=== PATIENT | male | born 1965 | race Caucasian/White ===

== ENCOUNTER 2018-05-31 20:47 | Inpatient (IN) ==
[2018-05-31] MEDS ORDERED: Propofol Inj 500 MG/50 ML Vial ONE (20:53)
[2018-05-31] MEDS ORDERED: Propofol 1000 mg/100 ml Inj 1,000 MG/100 ML BOTTLE IV.CONT PRN (21:00)
[2018-05-31] MEDS ORDERED: Succinylcholine Inj 200 MG/10 ML Vial IV.PUSH ONE (21:00)
[2018-05-31] MEDS ORDERED: Etomidate Inj 20 MG/10 ML Ampul IV.PUSH ONE (21:00)
--- NOTE | 2018-05-31 21:34 | XR ---
EXAM DATE: 05/31/2018 9:30 PM EDT AGE/SEX: 52 years / Male INDICATIONS: Shortness of breath. CLINICAL DATA: This is the patient's initial encounter. Patient reports that signs and symptoms have been present for 1 day and indicates a pain score of Nonresponsive. MEDICAL/SURGICAL HISTORY: Non-responsive. Non-responsive. COMPARISON: No prior exams available for comparison. FINDINGS: Mild bibasilar atelectasis. Tiny pleural effusion on the left. No pneumothorax seen. Endotracheal tube tip is at the level of the thoracic inlet, nearly 10 cm above the jacques. Nasogastr ic tube courses into the stomach. CONCLUSION: 1. Trace bibasilar atelectasis. 2. Probable small left pleural effusion. 3. Endotracheal tube tip is at the thoracic inlet. 4. Nasogastric tube tip in the stomach. Electronically signed by: Abdirahman Pelayo MD 05/31/2018 9:32 PM EDT
[2018-05-31 21:40] LABS: Baso % (Auto) 0.5 % (0.0-2.0); Eos % (Auto) 0.3 % (0.0-4.0); Hemoglobin 15.8 gm/dL (13.0-17.0); Lymph # (Auto) 0.7 th/mm3 (1.0-4.8); Lymph % (Auto) 11.3 % (9.0-44.0); Mean Corpuscular HGB Conc 34.2 % (32.0-36.0); Mean Corpuscular Volume 99.4 fL (80.0-100.0); Mean Platelet Volume 7.4 fL (7.0-11.0); Mono # (Auto) 0.3 th/mm3 (0.0-0.9); Mono % (Auto) 5.5 % (0.0-8.0); Neut % (Auto) 82.4 % (16.0-70.0); Platelet Count 175 th/mm3 (150-450); Red Blood Count 4.63 mil/mm3 (4.50-5.90); Red Cell Distribution Width 12.6 % (11.6-17.2); White Blood Count 6.1 th/mm3 (4.0-11.0)
[2018-05-31] MEDS ORDERED: Sod Chloride 0.9% Inj 1,000 ML IV.SIG ONE (21:45)
[2018-05-31 21:50] LABS: Albumin 3.9 g/dL (3.4-5.0); Anion Gap 12 meq/L (5-15); Aspartate Aminotransferase 40 U/L (15-37); Blood Urea Nitrogen 6 mg/dL (7-18); Calcium 8.3 mg/dL (8.5-10.1); Carbon Dioxide 20.7 meq/L (21.0-32.0); Chloride 105 meq/L (98-107); Glomerular Filtration Rate 88 mL/min (>89); Glucose,Random 82 mg/dL (74-106); Potassium 3.9 meq/L (3.5-5.1); Sodium 138 meq/L (136-145)
[2018-05-31 21:53] LABS: Alanine Aminotransferase 45 U/L (12-78); Alkaline Phosphatase 90 U/L (45-117); Total Protein 7.4 g/dL (6.4-8.2)
[2018-05-31 21:58] LABS: ABG Base Excess -7.1 mmol/L (-2-2); ABG PCO2 44 mmHg (38-42); ABG PO2 268 mmHg (61-120)
[2018-05-31 22:01] LABS: Prothrombin Time 10.6 sec (9.8-11.6)
[2018-05-31 22:05] LABS: Thyroid Stimulating Hormone 2.61 uIU/mL (0.358-3.740)
[2018-05-31 22:06] LABS: Bilirubin,Urine Negative (Negative); Clarity,Urine Clear (Clear); Color,Urine Straw (Yellw/Straw); Glucose,Urine (UA) Negative (Negative); Hyaline Casts,Urine 4 /lpf (0-3); Leukocyte Esterase,Urine Negative (Negative); Mucus,Urine Few /lpf (Occasional); Nitrite,Urine Negative (Negative); Specific Gravity,Urine 1.005 (1.002-1.035)
[2018-05-31 22:08] LABS: Amphetamine Screen,Urine Neg (Neg); Barbiturate Screen,Urine Neg (Neg); Cannabinoid Screen,Urine Neg (Neg); Cocaine Screen,Urine Neg (Neg)
[2018-05-31 22:10] LABS: Opiate Screen,Urine Neg (Neg)
--- NOTE | 2018-05-31 22:22 | ED ---
HPI General Chief complaint: Altered Mental Status Stated complaint: evac/medical Time Seen by Provider: 05/31/18 21:00 Source: EMS Mode of arrival: EMS Limitations: altered mental status History of Present Illness HPI narrative: 52yM presenting with unconsciousness. EMS was reportedly called by the patient's 2 friends, who said that the patient took too much Tramadol [place] called EMS when he didn't wake up after approximately 2 hours. EMS found him sitting in a beach chair in high tide, no apparent trauma, but GCS of 3. His GCS apparent improved to 6 during transport, but was again 3 by the time he arrived. I was unable to elicit any further details of HPI, ROS, PMH, PSH, social history, or family history. Related Data Home Medications Medication Instructions Recorded Confirmed Unable to Obtain Home Meds 05/31/18 05/31/18 Allergies Allergy/AdvReac Type Severity Reaction Status Date / Time No Allergy Information Allergy Unverified 05/31/18 21:00 Available Review of Systems ROS Unobtainable ROS Unobtainable: unobtainable due to endotracheal tube PMFSH History History Provided By: Patient Medical History Medical History Medical history unknown (Acute) Surgical History Surgical History Surgical history unknown (Acute) Family History Family History Other Family history unobtainable Social History Social History Substance History: Unable to Obtain Smoking Status: Unknown if ever smoked How Often Do You Have a Drink Containing Alcohol: Unable to Obtain Recent Travel in [facility] within the Last 8 Weeks: No Recent Out of Country Travel within the Last 8 Weeks: No Immunization History Tetanus Immunization: Unable to Assess Hx Influenza Vaccine This Season: Unable to Assess Exam Const Other: Unresponsive [facility] Head: normocephalic and atraumatic Eyes Other: Pupils 4 mm and non-reactive Conjunctival injection bilaterally Neck Other: Trachea midline Chest Chest: normal inspection of the chest Resp Effort & Inspection: normal respiratory effort Auscultation: no rhonchi and no wheezes Cardio Rate: tachycardic Rhythm: regular rhythm GI Inspection: non-distended Palpation: soft and nontender Skin General: no rashes or lesions noted Neuro Other: GCS 3, no response to sternal rub Procedures Intubation Time Out Performed: Yes Sedative: etomidate Mg Given: 20 Paralytic: succinylcholine Mg Given: 100 Laryngoscope: John ET Tube Size: 8 ET Tube Uncuffed: Yes Tube Secured Depth (cm): 25 Tube Secured Location: teeth Tube Placement Confirmation: visualized tube passing through cords, equal breath sounds bilaterally, no breath sounds over epigastrium and confirmation by capnometry Patient Tolerated Procedure: well and no complications Intubation Complications: none Course Initial Documented Vital Signs Pulse Rate 118 H 05/31/18 20:52 Respiratory Rate 24 05/31/18 20:52 Blood Pressure 184/125 H 05/31/18 20:52 Pulse Oximetry 100 05/31/18 20:52 Last Documented Vital Signs Temperature 95.0 F L 05/31/18 21:00 Pulse Rate 89 06/01/18 00:10 Respiratory Rate 15 06/01/18 00:10 Blood Pressure 130/85 06/01/18 00:00 Pulse Oximetry 98 06/01/18 00:10 Critical Care Time Critical Care Time: Yes Total Critical Care Time: 35 Attestation: Total critical care time 35 minutes. This includes examining and stabilizing the patient, gathering a history from a source other than the patient (i.e., EMS), formulating a differential diagnosis, ordering and interpreting laboratory tests and EKG, ordering and interpreting radiology tests , discussing the patient's care with other providers ([facility]), and re-evaluation at frequent intervals. Amount of time is separate from teaching, counseling the patient and/or family, and exclusive of procedures. Medical Decision Making MDM Narrative Medical decision making narrative: Assessment: 52yM presenting with unresponsiveness Plan: Intubation EKG and monitor Labs, including tox screen, EtOH CXR CTH This patient cannot go home as he has acute hypoxic respiratory failure and altered mental status requiring mechanical intubation. He will need ICU level of care. Case discussed with Dr. Wolfe. Differential Diagnosis Differential Diagnosis: Differential diagnosis includes, but is not limited to: ICH, intoxication/ overdose, dehydration Lab Data Lab results reviewed: Yes I reviewed the patient's lab results. Result diagrams: 05/31/18 21:00 05/31/18 21:00 Lab Results 05/31/18 05/31/18 05/31/18 Range/Units 21:00 21:00 21:00 WBC 6.1 (4.0-11.0) th/mm3 RBC 4.63 (4.50-5.90) mil/mm3 Hgb 15.8 (13.0-17.0) gm/dL Hct 46.0 (39.0-51.0) % MCV 99.4 (80.0-100.0) fL MCH 34.0 (27.0-34.0) pg MCHC 34.2 (32.0-36.0) % RDW 12.6 (11.6-17.2) % Plt Count 175 (150-450) th/mm3 MPV 7.4 (7.0-11.0) fL Neut % (Auto) 82.4 H (16.0-70.0) % Lymph % (Auto) 11.3 (9.0-44.0) % [place] % (Auto) 5.5 (0.0-8.0) % Eos % (Auto) 0.3 (0.0-4.0) % Baso % (Auto) 0.5 (0.0-2.0) % Neut # (Auto) 5.0 (1.8-7.7) th/mm3 Lymph # (Auto) 0.7 L (1.0-4.8) th/mm3 [place] # (Auto) 0.3 (0.0-0.9) th/mm3 Eos # (Auto) 0.0 (0.0-0.4) th/mm3 Baso # (Auto) 0.0 (0.0-0.2) th/mm3 WBC Differential . Differential Comment Auto diff final PT 10.6 (9.8-11.6) sec INR 1.0 Ratio Puncture Site Patient Temperature O2 Saturation (90-100) % ABG pH (7.380-7.420) ABG pCO2 (38-42) mmHg ABG pO2 (61-120) mmHg ABG HCO3 (22-26) mmol/L ABG O2 Content (12.0-20.0) Vol % ABG Base Excess (-2-2) mmol/L ABG Methemoglobin (0-2) % Alex Test Hemoglobin (12.0-16.0) G/DL Carboxyhemoglobin (0-4) % O2 Delivery Device Vent Setting Inspired O2 % Critical Value Sodium (136-145) meq/L Potassium (3.5-5.1) meq/L Chloride (98-107) meq/L Carbon Dioxide (21.0-32.0) meq/L Anion Gap (5-15) meq/L BUN (7-18) mg/dL Creatinine (0.60-1.30) mg/dL Estimated GFR (>89) mL/min Random Glucose (74-106) mg/dL Lactic Acid (0.4-2.0) mmol/L Calcium (8.5-10.1) mg/dL Total Bilirubin (0.2-1.0) mg/dL Direct Bilirubin (0.0-0.2) mg/dL Indirect Bilirubin (0.0-0.8) mg/dL AST (15-37) U/L ALT (12-78) U/L Alkaline Phosphatase (45-117) U/L Ammonia (11-32) mcmol/L Troponin I (0.02-0.05) ng/mL Total Protein (6.4-8.2) g/dL Albumin (3.4-5.0) g/dL TSH 2.610 (0.358-3.740) uIU/mL Urine Color (Yellw/Straw) Urine Clarity (Clear) Urine pH (5.0-8.5) Ur Specific [place] (1.002-1.035) Urine Protein (Neg-Trace) mg/dL Urine Glucose (UA) (Negative) mg/dL Urine Ketones (Negative) mg/dL Urine Occult Blood (Negative) Urine Nitrate (Negative) Urine Bilirubin (Negative) Urine Urobilinogen (Less than 2) mg/dL Ur Leukocyte Esterase (Negative) Hyaline Casts (0-3) /lpf Urine Mucus (Occasional) /lpf Micro UA Comment Urine Culture Comments Salicylates (2.8-20.0) mg/dL Urine Opiates Screen (Neg) Acetaminophen (10.0-30.0) mcg/mL Ur Barbiturates Screen (Neg) Ur Amphetamines Screen (Neg) U Benzodiazepines Scrn (Neg) Urine Cocaine Screen (Neg) U Cannabinoids Screen (Neg) Serum Alcohol 129 H (0-5) mg/dL 05/31/18 05/31/18 05/31/18 Range/Units 21:00 21:00 21:00 WBC (4.0-11.0) th/mm3 RBC (4.50-5.90) mil/mm3 Hgb (13.0-17.0) gm/dL Hct (39.0-51.0) % MCV (80.0-100.0) fL MCH (27.0-34.0) pg MCHC (32.0-36.0) % RDW (11.6-17.2) % Plt Count (150-450) th/mm3 MPV (7.0-11.0) fL Neut % (Auto) (16.0-70.0) % Lymph % (Auto) (9.0-44.0) % [place] % (Auto) (0.0-8.0) % Eos % (Auto) (0.0-4.0) % Baso % (Auto) (0.0-2.0) % Neut # (Auto) (1.8-7.7) th/mm3 Lymph # (Auto) (1.0-4.8) th/mm3 [place] # (Auto) (0.0-0.9) th/mm3 Eos # (Auto) (0.0-0.4) th/mm3 Baso # (Auto) (0.0-0.2) th/mm3 WBC Differential Differential Comment PT (9.8-11.6) sec INR Ratio Puncture Site Patient Temperature O2 Saturation (90-100) % ABG pH (7.380-7.420) ABG pCO2 (38-42) mmHg ABG pO2 (61-120) mmHg ABG HCO3 (22-26) mmol/L ABG O2 Content (12.0-20.0) Vol % ABG Base Excess (-2-2) mmol/L ABG Methemoglobin (0-2) % Alex Test Hemoglobin (12.0-16.0) G/DL Carboxyhemoglobin (0-4) % O2 Delivery Device Vent Setting Inspired O2 % Critical Value Sodium 138 (136-145) meq/L Potassium 3.9 (3.5-5.1) meq/L Chloride 105 (98-107) meq/L Carbon Dioxide 20.7 L (21.0-32.0) meq/L Anion Gap 12 (5-15) meq/L BUN 6 L (7-18) mg/dL Creatinine 0.91 (0.60-1.30) mg/dL Estimated GFR 88 L (>89) mL/min Random Glucose 82 (74-106) mg/dL Lactic Acid 3.5 H (0.4-2.0) mmol/L Calcium 8.3 L (8.5-10.1) mg/dL Total Bilirubin 0.5 (0.2-1.0) mg/dL Direct Bilirubin (0.0-0.2) mg/dL Indirect Bilirubin (0.0-0.8) mg/dL AST 40 H (15-37) U/L ALT 45 (12-78) U/L Alkaline Phosphatase 90 (45-117) U/L Ammonia 12 (11-32) mcmol/L Troponin I Less than 0.02 L (0.02-0.05) ng/mL Total Protein 7.4 (6.4-8.2) g/dL Albumin 3.9 (3.4-5.0) g/dL TSH (0.358-3.740) uIU/mL Urine Color (Yellw/Straw) Urine Clarity (Clear) Urine pH (5.0-8.5) Ur Specific [place] (1.002-1.035) Urine Protein (Neg-Trace) mg/dL Urine Glucose (UA) (Negative) mg/dL Urine Ketones (Negative) mg/dL Urine Occult Blood (Negative) Urine Nitrate (Negative) Urine Bilirubin (Negative) Urine Urobilinogen (Less than 2) mg/dL Ur Leukocyte Esterase (Negative) Hyaline Casts (0-3) /lpf Urine Mucus (Occasional) /lpf Micro UA Comment Urine Culture Comments Salicylates (2.8-20.0) mg/dL Urine Opiates Screen (Neg) Acetaminophen (10.0-30.0) mcg/mL Ur Barbiturates Screen (Neg) Ur Amphetamines Screen (Neg) U Benzodiazepines Scrn (Neg) Urine Cocaine Screen (Neg) U Cannabinoids Screen (Neg) Serum Alcohol (0-5) mg/dL 05/31/18 05/31/18 05/31/18 Range/Units 21:09 21:10 21:10 WBC (4.0-11.0) th/mm3 RBC (4.50-5.90) mil/mm3 Hgb (13.0-17.0) gm/dL Hct (39.0-51.0) % MCV (80.0-100.0) fL MCH (27.0-34.0) pg MCHC (32.0-36.0) % RDW (11.6-17.2) % Plt Count (150-450) th/mm3 MPV (7.0-11.0) fL Neut % (Auto) (16.0-70.0) % Lymph % (Auto) (9.0-44.0) % [place] % (Auto) (0.0-8.0) % Eos % (Auto) (0.0-4.0) % Baso % (Auto) (0.0-2.0) % Neut # (Auto) (1.8-7.7) th/mm3 Lymph # (Auto) (1.0-4.8) th/mm3 [place] # (Auto) (0.0-0.9) th/mm3 Eos # (Auto) (0.0-0.4) th/mm3 Baso # (Auto) (0.0-0.2) th/mm3 WBC Differential Differential Comment PT (9.8-11.6) sec INR Ratio Puncture Site Right radial Patient Temperature 98.6 O2 Saturation 93 (90-100) % ABG pH 7.25 L* (7.380-7.420) ABG pCO2 44 H (38-42) mmHg ABG pO2 268 H (61-120) mmHg ABG HCO3 19 L (22-26) mmol/L ABG O2 Content 20.6 H (12.0-20.0) Vol % ABG Base Excess -7.1 L (-2-2) mmol/L ABG Methemoglobin 0.7 (0-2) % Alex Test Y Hemoglobin 15.3 (12.0-16.0) G/DL Carboxyhemoglobin 5.5 H* (0-4) % O2 Delivery Device Ventilator Vent Setting [id number] Inspired O2 60 % Critical Value Yes Sodium (136-145) meq/L Potassium (3.5-5.1) meq/L Chloride (98-107) meq/L Carbon Dioxide (21.0-32.0) meq/L Anion Gap (5-15) meq/L BUN (7-18) mg/dL Creatinine (0.60-1.30) mg/dL Estimated GFR (>89) mL/min Random Glucose (74-106) mg/dL Lactic Acid (0.4-2.0) mmol/L Calcium (8.5-10.1) mg/dL Total Bilirubin (0.2-1.0) mg/dL Direct Bilirubin (0.0-0.2) mg/dL Indirect Bilirubin (0.0-0.8) mg/dL AST (15-37) U/L ALT (12-78) U/L Alkaline Phosphatase (45-117) U/L Ammonia (11-32) mcmol/L Troponin I (0.02-0.05) ng/mL Total Protein (6.4-8.2) g/dL Albumin (3.4-5.0) g/dL TSH (0.358-3.740) uIU/mL Urine Color Straw (Yellw/Straw) Urine Clarity Clear (Clear) Urine pH 5.0 (5.0-8.5) Ur Specific [place] 1.005 (1.002-1.035) Urine Protein Negative (Neg-Trace) mg/dL Urine Glucose (UA) Negative (Negative) mg/dL Urine Ketones Trace (Negative) mg/dL Urine Occult Blood Negative (Negative) Urine Nitrate Negative (Negative) Urine Bilirubin Negative (Negative) Urine Urobilinogen Less than 2 (Less than 2) mg/dL Ur Leukocyte Esterase Negative (Negative) Hyaline Casts 4 (0-3) /lpf Urine Mucus Few H (Occasional) /lpf Micro UA Comment Cath-culture not ind Urine Culture Comments Cath-cult not ind Salicylates (2.8-20.0) mg/dL Urine Opiates Screen Neg (Neg) Acetaminophen (10.0-30.0) mcg/mL Ur Barbiturates Screen Neg (Neg) Ur Amphetamines Screen Neg (Neg) U Benzodiazepines Scrn Neg (Neg) Urine Cocaine Screen Neg (Neg) U Cannabinoids Screen Neg (Neg) Serum Alcohol (0-5) mg/dL 05/31/18 05/31/18 05/31/18 Range/Units 22:39 23:15 23:15 WBC (4.0-11.0) th/mm3 RBC (4.50-5.90) mil/mm3 Hgb (13.0-17.0) gm/dL Hct (39.0-51.0) % MCV (80.0-100.0) fL MCH (27.0-34.0) pg MCHC (32.0-36.0) % RDW (11.6-17.2) % Plt Count (150-450) th/mm3 MPV (7.0-11.0) fL Neut % (Auto) (16.0-70.0) % Lymph % (Auto) (9.0-44.0) % [place] % (Auto) (0.0-8.0) % Eos % (Auto) (0.0-4.0) % Baso % (Auto) (0.0-2.0) % Neut # (Auto) (1.8-7.7) th/mm3 Lymph # (Auto) (1.0-4.8) th/mm3 [place] # (Auto) (0.0-0.9) th/mm3 Eos # (Auto) (0.0-0.4) th/mm3 Baso # (Auto) (0.0-0.2) th/mm3 WBC Differential Differential Comment PT (9.8-11.6) sec INR Ratio Puncture Site Right radial Patient Temperature 98.6 O2 Saturation 94 (90-100) % ABG pH 7.31 L (7.380-7.420) ABG pCO2 41 (38-42) mmHg ABG pO2 211 H (61-120) mmHg ABG HCO3 20 L (22-26) mmol/L ABG O2 Content 21.0 H (12.0-20.0) Vol % ABG Base Excess -5.3 L (-2-2) mmol/L ABG Methemoglobin 0.8 (0-2) % Alex Test Present Hemoglobin 15.5 (12.0-16.0) G/DL Carboxyhemoglobin 4.1 H (0-4) % O2 Delivery Device Ventilator Vent Setting [id number]/[id number] Inspired O2 60 % Critical Value No Sodium (136-145) meq/L Potassium (3.5-5.1) meq/L Chloride (98-107) meq/L Carbon Dioxide (21.0-32.0) meq/L Anion Gap (5-15) meq/L BUN (7-18) mg/dL Creatinine (0.60-1.30) mg/dL Estimated GFR (>89) mL/min Random Glucose (74-106) mg/dL Lactic Acid (0.4-2.0) mmol/L Calcium (8.5-10.1) mg/dL Total Bilirubin 1.0 (0.2-1.0) mg/dL Direct Bilirubin 0.1 (0.0-0.2) mg/dL Indirect Bilirubin 0.9 H (0.0-0.8) mg/dL AST 71 H (15-37) U/L ALT 46 (12-78) U/L Alkaline Phosphatase 78 (45-117) U/L Ammonia 64 H (11-32) mcmol/L Troponin I Less than 0.02 L (0.02-0.05) ng/mL Total Protein 6.9 (6.4-8.2) g/dL Albumin 3.4 (3.4-5.0) g/dL TSH (0.358-3.740) uIU/mL Urine Color (Yellw/Straw) Urine Clarity (Clear) Urine pH (5.0-8.5) Ur Specific [place] (1.002-1.035) Urine Protein (Neg-Trace) mg/dL Urine Glucose (UA) (Negative) mg/dL Urine Ketones (Negative) mg/dL Urine Occult Blood (Negative) Urine Nitrate (Negative) Urine Bilirubin (Negative) Urine Urobilinogen (Less than 2) mg/dL Ur Leukocyte Esterase (Negative) Hyaline Casts (0-3) /lpf Urine Mucus (Occasional) /lpf Micro UA Comment Urine Culture Comments Salicylates (2.8-20.0) mg/dL Urine Opiates Screen (Neg) Acetaminophen (10.0-30.0) mcg/mL Ur Barbiturates Screen (Neg) Ur Amphetamines Screen (Neg) U Benzodiazepines Scrn (Neg) Urine Cocaine Screen (Neg) U Cannabinoids Screen (Neg) Serum Alcohol (0-5) mg/dL 05/31/18 05/31/18 06/01/18 Range/Units 23:15 23:15 00:00 WBC (4.0-11.0) th/mm3 RBC (4.50-5.90) mil/mm3 Hgb (13.0-17.0) gm/dL Hct (39.0-51.0) % MCV (80.0-100.0) fL MCH (27.0-34.0) pg MCHC (32.0-36.0) % RDW (11.6-17.2) % Plt Count (150-450) th/mm3 MPV (7.0-11.0) fL Neut % (Auto) (16.0-70.0) % Lymph % (Auto) (9.0-44.0) % [place] % (Auto) (0.0-8.0) % Eos % (Auto) (0.0-4.0) % Baso % (Auto) (0.0-2.0) % Neut # (Auto) (1.8-7.7) th/mm3 Lymph # (Auto) (1.0-4.8) th/mm3 [place] # (Auto) (0.0-0.9) th/mm3 Eos # (Auto) (0.0-0.4) th/mm3 Baso # (Auto) (0.0-0.2) th/mm3 WBC Differential Differential Comment PT (9.8-11.6) sec INR Ratio Puncture Site Patient Temperature O2 Saturation (90-100) % ABG pH (7.380-7.420) ABG pCO2 (38-42) mmHg ABG pO2 (61-120) mmHg ABG HCO3 (22-26) mmol/L ABG O2 Content (12.0-20.0) Vol % ABG Base Excess (-2-2) mmol/L ABG Methemoglobin (0-2) % Alex Test Hemoglobin (12.0-16.0) G/DL Carboxyhemoglobin (0-4) % O2 Delivery Device Vent Setting Inspired O2 % Critical Value Sodium (136-145) meq/L Potassium (3.5-5.1) meq/L Chloride (98-107) meq/L Carbon Dioxide (21.0-32.0) meq/L Anion Gap (5-15) meq/L BUN (7-18) mg/dL Creatinine (0.60-1.30) mg/dL Estimated GFR (>89) mL/min Random Glucose (74-106) mg/dL Lactic Acid 3.3 H (0.4-2.0) mmol/L Calcium (8.5-10.1) mg/dL Total Bilirubin (0.2-1.0) mg/dL Direct Bilirubin (0.0-0.2) mg/dL Indirect Bilirubin (0.0-0.8) mg/dL AST (15-37) U/L ALT (12-78) U/L Alkaline Phosphatase (45-117) U/L Ammonia (11-32) mcmol/L Troponin I (0.02-0.05) ng/mL Total Protein (6.4-8.2) g/dL Albumin (3.4-5.0) g/dL TSH (0.358-3.740) uIU/mL Urine Color (Yellw/Straw) Urine Clarity (Clear) Urine pH (5.0-8.5) Ur Specific [place] (1.002-1.035) Urine Protein (Neg-Trace) mg/dL Urine Glucose (UA) (Negative) mg/dL Urine Ketones (Negative) mg/dL Urine Occult Blood (Negative) Urine Nitrate (Negative) Urine Bilirubin (Negative) Urine Urobilinogen (Less than 2) mg/dL Ur Leukocyte Esterase (Negative) Hyaline Casts (0-3) /lpf Urine Mucus (Occasional) /lpf Micro UA Comment Urine Culture Comments Salicylates 3.3 (2.8-20.0) mg/dL Urine Opiates Screen (Neg) Acetaminophen Less than 2.0 L (10.0-30.0) mcg/mL Ur Barbiturates Screen (Neg) Ur Amphetamines Screen (Neg) U Benzodiazepines Scrn (Neg) Urine Cocaine Screen (Neg) U Cannabinoids Screen (Neg) Serum Alcohol (0-5) mg/dL Imaging Data Radiologist's impression: Chest X-Ray 05/31/18 21:00 CONCLUSION: 1. Trace bibasilar atelectasis. 2. Probable small left pleural effusion. 3. Endotracheal tube tip is at the thoracic inlet. 4. Nasogastric tube tip in the stomach. Head CT 06/01/18 00:01 CONCLUSION: No acute intracranial abnormality is identified. ECG Data Attestation: I personally reviewed and interpreted this ECG as follows: Interpretation: Rate: 107 BPM Rhythm: Sinus [place]: Normal Intervals: Normal intervals, no blocks, QTc 396 ms Q waves: aVL T waves: Upright, no inversions ST segments: No significant elevations or depressions Impression: Non-specific EKG. Discharge Plan Discharge Disposition Patient Disposition: 30 Still Patient Discharge Condition Condition: Critical Discharge Details Diagnosis: Overdose, Altered mental status, Acute respiratory failure with hypoxia Physicians Team ED Provider: Renee Nash Primary Care Provider: UNKNOWN, Attending Provider: Rl Wolfe Discharge Interventions Interventions: ED Discharge Assessment Last Done: 06/01/18 00:58 Status ED Status: Left Department Discharge Information Discharge Date/Time: 06/01/18 00:59
[2018-05-31] MEDS ORDERED: Bisacodyl 10 MG Supp RECTAL PRN (23:00)
[2018-05-31] MEDS ORDERED: fentaNYL 10 mcg/mL Premix Drip 2,500 MCG/250 ML BAG IV.SIG PRN (23:00)
[2018-05-31] MEDS ORDERED: Acetaminophen 325 MG Tablet PO PRN (23:00)
[2018-05-31] MEDS ORDERED: Magnesium Sulfate Inj 2 GM in Sodium Chlor 0.9% Inj 96 ML IV.SIG PRN (23:04)
[2018-05-31] MEDS ORDERED: Potassium Chlor 40 mEq Premix 40 MEQ/100 ML PIGGYBACK IV.SIG PRN ×2 (23:04)
[2018-05-31] MEDS ORDERED: Magnesium Oxide 400 MG Tablet PO PRN (23:04)
[2018-05-31] MEDS ORDERED: Potassium Phosphate 500 MG Soluble Tablet PO PRN ×2 (23:04)
[2018-05-31] MEDS ORDERED: Magnesium Sulfate Inj 4 GM in Sodium Chlor 0.9% Inj 92 ML IV.SIG PRN (23:04)
[2018-05-31] MEDS ORDERED: Potassium Phosphate Inj 30 MMOL in Sodium Chlor 0.9% Inj 250 ML IV.SIG PRN (23:04)
[2018-05-31] MEDS ORDERED: Potassium Chlor 20 mEq Premix 20 MEQ/100 ML PIGGYBACK IV.SIG PRN ×2 (23:04)
[2018-05-31] MEDS ORDERED: Sodium Phosphate Inj 30 MMOL in Sodium Chlor 0.9% Inj 250 ML IV.SIG PRN (23:04)
[2018-05-31] MEDS ORDERED: Potassium Chloride 25 MEQ Effervescent Tablet PO PRN (23:04)
[2018-05-31] MEDS ORDERED: Dextrose 50% in Water 50 ML Vial IV.PUSH PRN (23:05)
--- NOTE | 2018-05-31 23:07 | P.HPCC ---
History of Present Illness Service: [facility] Primary Care Physician: UNKNOWN Chief Complaint: Unresponsive unresponsive History of Present Illness: This is a 52-year-old male. Date of admission 05/31/2018 past medical history is unknown. Patient has been recently [facility] for approximately 1 week according to 2 friends per records. Patient was found by his 2 friends sitting in a beachchair with steep and water after allegedly taking tramadol and drinking alcohol. He is generally unresponsive GCS of 3. It slightly improved but went back to baseline at 3 upon admission. Patient is intubated receiving 20 mg etomidate in the 100 mg succinylcholine. Baseline laboratories revealed an EtOH level of 127. EKG revealed sinus tachycardia 107. Normal NH, QRS and QT intervals. Patient lactic acidosis of 3.5. Carboxy hemoglobin of 5.5. Chest x-ray reveals ET tube tenseness of the jacques which is been advanced. Small left pleural effusion. Since the friends are no longer available. Unable to further details of HPI, ROS, PMH, PSH, social history, or family history. Review of Systems unobtainable due to endotracheal tube PMFSH - History History Provided By: Patient - Medical / Surgical Hx Neg / Unobtainable Medical Problems Denied: Unable to Obtain - Medical History Medical History: Medical History (Last Updated 05/31/18 @ 23:24 by Rl Wolfe MD) Medical history unknown - Surgical History Surgical History: Surgical History (Last Updated 05/31/18 @ 23:25 by Rl Wolfe MD) Surgical history unknown (Acute) - Family History Family History: Family History (Last Updated 05/31/18 @ 23:24 by Rl Wolfe MD) Other Family history unobtainable - Tobacco History Smoking Status: Unknown if ever smoked - Alcohol History How Often Do You Have a Drink Containing Alcohol: Unable to Obtain - Substance Use History Substance History: Unable to Obtain - Travel History Recent Travel in the [place] Within the Last 8 Weeks: No Recent Travel Out of the Country Within the Last 8 Weeks: No - Immunization History Tetanus Immunization: Unable to Assess Hx Influenza Vaccine This Season: Unable to Assess Medications and Allergies Active Medications: Active Medications Acetaminophen (Tylenol) 650 mg PO Q6H PRN PRN Reason: PAIN 1-10 AND/OR FEVER >101F Al Hydroxide/Mg Hydroxide (Milk Of Magnesia Liq) 30 ml PO Q12H PRN PRN Reason: Mild Constipation Albuterol (Albuterol Neb (Fidelia)) 2.5 mg NEB Q2HR NEB PRN PRN Reason: SHORTNESS OF BREATH/WHEEZING Albuterol (Duoneb Neb (Prn)) 1 ampul NEB Q4HR NEB FIDELIA Artificial Tears (Genteal Severe Dry Eye Relief 0.3% Opth Gel) 1 drops EACH EYE BID FIDELIA Bisacodyl (Dulcolax Supp) 10 mg RECTAL DAILY PRN PRN Reason: SEVERE CONSITIPATION Chlorhexidine Gluconate (Peridex 0.12% Oral Kit) 15 ml OROPHARYNG BID@0800, 2000 FIDELIA Chlorhexidine Gluconate (Chlorhexidine 2% Cloth) 3 pack TOPICAL DAILY@0400 FIDELIA Stop: 06/06/18 03:59 Chlorhexidine Gluconate (Chlorhexidine 2% Cloth) 3 pack TOPICAL DAILY@0400 PRN PRN Reason: Extra cloth needed Stop: 06/06/18 03:59 Chlorhexidine Gluconate (Peridex 0.12% Oral Kit) 15 ml OROPHARYNG BID@0800, 2000 [facility] Dextrose (D50w Vial) 50 ml IV.PUSH UNSCH PRN PRN Reason: PER HYPOGLYCEMIA PROTOCOL Dextrose (D50w Vial) 50 ml IV.PUSH UNSCH PRN PRN Reason: PER HYPOGLYCEMIA PROTOCOL Famotidine (Pepcid Pf Inj) 20 mg IV.PUSH Q12HR FIDELIA Glucagon (Glucagon Inj) 1 mg OTHER PRN PRN PRN Reason: for Hypoglycemia Protocol Glucagon (Glucagon Inj) 1 mg OTHER PRN PRN PRN Reason: for Hypoglycemia Protocol Propofol (Diprivan 1000 Mg/100 Ml Inj) 1,000 mg in 100 mls @ 2.722 mls/hr IV.CONT TITRATE PRN; Protocol PRN Reason: Per Protocol Last Admin: 05/31/18 21:23 Dose: 55.11 mcg/kg/min, 30 mls/hr Fentanyl (Fentanyl 10 Mcg/Ml Premix Drip) 2,500 mcg in 250 mls @ 5 mls/hr IV.SIG TITRATE PRN; Protocol PRN Reason: Per Protocol Propofol (Diprivan 1000 Mg/100 Ml Inj) 1,000 mg in 100 mls @ 2.722 mls/hr IV.CONT TITRATE PRN; Protocol PRN Reason: Per Protocol Sodium Chloride (Ns Inj) 1,000 mls @ 84 mls/hr IV.CONT .[id number] FIDELIA Magnesium Sulfate Inj 4 gm/ (Sodium Chloride) 100 mls @ 50 mls/hr IV.SIG UNSCH PRN PRN Reason: For Magnesium 0.9 - 1.1 mg/dL Magnesium Sulfate Inj 2 gm/ (Sodium Chloride) 100 mls @ 50 mls/hr IV.SIG UNSCH PRN PRN Reason: For Magnesium 1.2 - 1.6 mg/dL Potassium Chloride (Kcl 20 Meq Premix Inj) 20 meq in 100 mls @ 50 mls/hr IV.SIG Q2H PRN PRN Reason: For Potassium 3.3 - 3.5 mEq/L Potassium Chloride (Kcl 40 Meq Premix Inj) 40 meq in 100 mls @ 25 mls/hr IV.SIG UNSCH PRN PRN Reason: For Potassium 3.3 - 3.5 mEq/L Potassium Chloride (Kcl 20 Meq Premix Inj) 20 meq in 100 mls @ 50 mls/hr IV.SIG Q2H PRN PRN Reason: For Potassium 2.8 - 3.2 mEq/L Potassium Phosphate 30 mmol/ (Sodium Chloride) 260 mls @ 42 mls/hr IV.SIG UNSCH PRN PRN Reason: SEE LABEL COMMENTS Sodium Phosphate 30 mmol/ (Sodium Chloride) 260 mls @ 42 mls/hr IV.SIG UNSCH PRN PRN Reason: For Phosphorus < 2.5 mg/dL Potassium Chloride (Kcl 40 Meq Premix Inj) 40 meq in 100 mls @ 25 mls/hr IV.SIG Q2H PRN PRN Reason: For Potassium 2.8 - 3.2 mEq/L Multivitamins 10 ml/ Thiamine HCl 100 mg/ Folic Acid 1 mg/Sodium Chloride 511.2 mls @ 125 mls/hr IV.SIG Q24H FIDELIA Stop: 06/03/18 03:51 Insulin Aspart (Novolog Insulin Correctional Sugar Inj) 0 unit SQ Q6HR FIDELIA; Protocol Lactulose (Lactulose Liq) 30 ml PO DAILY PRN PRN Reason: SEVERE CONSITIPATION Magnesium Oxide (Mag-Ox) 800 mg PO UNSCH PRN PRN Reason: For Magnesium 1.2 - 1.6 mg/dL Potassium Bicarb/Potassium Chloride (K-Lyte Cl Eff) 50 meq PO UNSCH PRN PRN Reason: For Potassium 3.3 - 3.5 mEq/L Potassium Phosphate (K-Phos Original) 2,000 mg PO Q4H PRN PRN Reason: Phosphorus Less Than 2.5 mg/dL Potassium Phosphate (K-Phos Original) 2,000 mg PO UNSCH PRN PRN Reason: SEE LABEL COMMENTS Senna/Docusate Sodium (Krystina-Colace) 1 tab PO BID FIDELIA Sennosides (Senokot) 17.2 mg PO Q12H PRN PRN Reason: Moderate Constipation Sodium Chloride (Ns Flush) 2 ml IV.FLUSH PRN PRN PRN Reason: FLUSH AFTER USING IV ACCESS Sodium Chloride (Ns Flush) 2 ml IV.FLUSH BID FIDELIA Sodium Chloride (Ns Flush) 2 ml IV.FLUSH PRN PRN PRN Reason: FLUSH AFTER USING IV ACCESS Allergies Allergy/AdvReac Type Severity Reaction Status Date / Time No Allergy Information Allergy Unverified 05/31/18 21:00 Available Home Medications Medication Instructions Recorded Confirmed Type Unable to Obtain Home Meds 05/31/18 05/31/18 History Results - Labs CBC & Chem 7: 05/31/18 21:00 05/31/18 21:00 Labs: Short CBC 05/31/18 Range/Units 21:00 WBC 6.1 (4.0-11.0) th/mm3 Hgb 15.8 (13.0-17.0) gm/dL Hct 46.0 (39.0-51.0) % Plt Count 175 (150-450) th/mm3 BMP 05/31/18 21:00 Sodium 138 Potassium 3.9 Chloride 105 Carbon Dioxide 20.7 L BUN 6 L Creatinine 0.91 Calcium 8.3 L Cardiac Enzymes 05/31/18 Range/Units 21:00 Troponin I Less than 0.02 L (0.02-0.05) ng/mL Liver Function 05/31/18 Range/Units 21:00 Total Bilirubin 0.5 (0.2-1.0) mg/dL AST 40 H (15-37) U/L ALT 45 (12-78) U/L Alkaline Phosphatase 90 (45-117) U/L Albumin 3.9 (3.4-5.0) g/dL Urine 05/31/18 Range/Units 21:10 Urine Color Straw (Yellw/Straw) Urine Clarity Clear (Clear) Urine pH 5.0 (5.0-8.5) Ur Specific [place] 1.005 (1.002-1.035) Urine Protein Negative (Neg-Trace) mg/dL Urine Glucose (UA) Negative (Negative) mg/dL - Imaging Impressions Chest X-Ray 05/31/18 21:00 CONCLUSION: 1. Trace bibasilar atelectasis. 2. Probable small left pleural effusion. 3. Endotracheal tube tip is at the thoracic inlet. 4. Nasogastric tube tip in the stomach. Exam Vital signs: Vital Signs 05/31/18 20:52 05/31/18 20:55 05/31/18 21:00 Temperature 95.0 F L Pulse Rate 118 H 127 H 147 H Respiratory Rate 24 18 22 Blood Pressure 184/125 H 230/147 H 204/125 H Pulse Oximetry 100 100 100 05/31/18 21:03 05/31/18 21:10 05/31/18 21:13 Temperature Pulse Rate 118 H 110 H Respiratory Rate 20 14 Blood Pressure 193/128 H 168/109 H Pulse Oximetry 100 100 100 05/31/18 22:33 Temperature Pulse Rate 104 H Respiratory Rate 16 Blood Pressure 153/99 H Pulse Oximetry 100 Intake & Output 05/31/18 05/31/18 06/01/18 06:59 18:59 06:59 Weight 90.718 kg - Constitutional no acute distress, somnolent - Routine HEENT Exam Head: Present: normocephalic, atraumatic Eye: Present: EOMI, PERRL, normal accommodation ENT: Present: mucous membranes moist, dentition normal - Routine Neck Exam Present: supple. Absent: JVD, carotid bruit - Routine Chest/Breast/Axilla Exam Chest wall: Absent: tenderness Breast: Absent: tenderness Axillae: Absent: lymphadenopathy - Routine Respiratory Exam Present: CTA bilaterally. Absent: accessory muscle use, rhonchi, wheezes, crackles - Routine Cardiovascular Exam Present: S1, S2, tachycardia. Absent: murmur - Routine Abdominal Exam Present: soft, normoactive bowel sounds. Absent: tenderness, distended - Routine Extremities Exam Absent: cyanosis, clubbing, edema - Routine Skin Exam Present: intact, warm - Routine Neurological Exam Present: CN II-XII intact. Absent: sensory deficit, motor deficit Septic Shock Reassessment Septic shock perfusion: reassessment completed Caprini VTE Risk Assessment Caprini VTE Risk Assessment: No/Low Risk (score <= 1) Caprini Risk Assessment Model: Point Value = 1 Point Value = 2 Point Value = 3 Point Value = 5 Age 41-60 Minor surgery BMI > 25 kg/m2 Swollen legs Varicose veins or History of unexplained or recurrent spontaneous Oral contraceptives or hormone replacement Sepsis (< 1 month) Serious lung disease, including pneumonia (< 1 month) Abnormal pulmonary function Acute myocardial infarction Congestive heart failure (< 1 month) History of inflammatory bowel disease Medical patient at bed rest Age 61-74 Arthroscopic surgery Major open surgery (> 45 min) Laparoscopic surgery (> 45 min) Malignancy Confined to bed (> 72 hours) Immobilizing plaster cast Central venous access Age >= 75 History of VTE Family history of VTE Factor V Leiden Prothrombin [id number] Lupus anticoagulant Anticardiolipin antibodies Elevated serum homocysteine Heparin-induced thrombocytopenia Other congenital or acquired thrombophilia Stroke (< 1 month) Elective arthroplasty Hip, pelvis, or leg fracture Acute spinal cord injury (< 1 month) Prophylaxis Regimen: Total Risk Factor Score Risk Level Prophylaxis Regimen 0-1 Low Early ambulation 2 Moderate Order ONE of the following: *Sequential Compression Device (SCD) *Heparin 5000 units SQ BID 3-4 Higher Order ONE of the following medications: *Heparin 5000 units SQ TID *Enoxaparin/Lovenox 40 mg SQ daily (WT < 150 kg, CrCl > 30 mL/min) *Enoxaparin/Lovenox 30 mg SQ daily (WT < 150 kg, CrCl > 10-29 mL/min) *Enoxaparin/Lovenox 30 mg SQ BID (WT < 150 kg, CrCl > 30 mL/min) AND/OR *Sequential Compression Device (SCD) 5 or more Highest Order ONE of the following medications: *Heparin 5000 units SQ TID (Preferred with Epidurals) *Enoxaparin/Lovenox 40 mg SQ daily (WT < 150 kg, CrCl > 30 mL/min) *Enoxaparin/Lovenox 30 mg SQ daily (WT < 150 kg, CrCl > 10-29 mL/min) *Enoxaparin/Lovenox 30 mg SQ BID (WT < 150 kg, CrCl > 30 mL/min) AND *Sequential Compression Device (SCD) Assessment and Plan - Assessment and Plan Plan: Neuro/Psych: Acute encephalopathy likely secondary to tramadol/EtOH EtOH intoxication CT brain currently pending Currently on propofol drip at 40 mg/kg/min/as needed fentanyl drip for sedation/ analgesia while intubated Goal of RA SS -2 Daily sedation vacation Follow-up on EEG Acetaminophen 600 mg by mouth every 6 hours as needed pain Urine toxicology screen, acetaminophen and salicylate levels pending EtOH level elevated at 129 Vitamin bag daily 3 days CV: Sinus tachycardia Lactic acidosis Currently on normal saline at 84 cc an hour Not requiring vasopressors and/or antihypertensives Received 2 L normal saline in ED. Recheck lactic acid in a.m. until cleared Resp: Acute respiratory failure secondary to AMS Elevated carboxyhemoglobin PRVC 16/540/10/25/49 Ventilator bundle Albuterol/ipratropium aerosols every 4 hours with albuterol aerosols every 2 hours as needed for dyspnea CPAP trial/spontaneous breathing trials when clinically indicated Chest x-ray revealed ET tube 10 cm above the jacques. This was advanced. Small left pleural effusion. Cardiomegaly GI: Elevated AST NG/OGT to LIWS Famotidine for GI prophylaxis Docusate sodium/senna 1 tablet twice daily for bowel regimen : Licea catheter has been placed for accurate I's and O's in a critically ill patient Endo: SSI aspart insulin Accu-Cheks every 6 hours to maintain euglycemia/low regimen TSH was 2.6 Renal: Monitor urine output Accurate I's and O's Recheck BMP in a.m. Heme: CBC within normal limits INR 1.0 No indication for transfusion of blood products at this time ID: Monitor for signs and symptomatology of infection FEN: Replace electrolytes as clinically indicated per ICU likely protocol MSK: PT evaluate and treat Access -Utilize peripheral IV. Central line if indicated Prophylaxis -GI -famotidine -DVT -SCD/holding pharmacological prophylaxis pending CT Critical time 35 minutes
[2018-05-31 23:39] LABS: ABG Base Excess -5.3 mmol/L (-2-2); ABG PCO2 41 mmHg (38-42); ABG PO2 211 mmHg (61-120)
[2018-05-31] MEDS: Sod Chloride 0.9% Inj 1,000 ML IV.CONT SCH (23:50)
[2018-05-31 23:55] LABS: Alkaline Phosphatase 78 U/L (45-117); Total Protein 6.9 g/dL (6.4-8.2)
[2018-05-31 23:56] LABS: Alanine Aminotransferase 46 U/L (12-78); Albumin 3.4 g/dL (3.4-5.0); Aspartate Aminotransferase 71 U/L (15-37)
[2018-06-01] MEDS ORDERED: Oral Hygiene Kit OROPHARYNG SCH
--- NOTE | 2018-06-01 01:06 | CT ---
EXAM DATE: 06/01/2018 1:00 AM EDT AGE/SEX: 52 years / Male INDICATIONS: Altered mental status. Found unresponsive. CLINICAL DATA: This is the patient's initial encounter. Patient reports that signs and symptoms have been present for 1 day and indicates a pain score of Nonresponsive. MEDICAL/SURGICAL HISTORY: Non-responsive. Non-responsive. RADIATION DOSE: 66.34 CTDI (mGy) COMPARISON: No prior exams available for comparison. TECHNIQUE: CT of the head without contrast. Using automated exposure control and adjustment of the mA and/or kV according to patient size, radiation dose was kept as low as reasonably achievable to ob tain optimal diagnostic quality images. DICOM format image data is available electronically for revi ew and comparison. FINDINGS: Cerebrum: The ventricles are normal. No midline shift, mass lesion, hemorrhage or acute infarction. No extraaxial fluid collections are seen. Posterior Fossa: The cerebellum and brainstem demonstrate no acute abnormality. The 4th ventricle is midline. The cerebellopontine angle is within normal limits. Extracranial: The visualized sinuses are clear. Skull: The calvaria is intact. No skull fracture. CONCLUSION: No acute intracranial abnormality is identified. Electronically signed by: Abdirahman Stanford MD 06/01/2018 1:05 AM EDT
[2018-06-01] MEDS: Propofol 1000 mg/100 ml Inj 1,000 MG/100 ML BOTTLE IV.CONT PRN ×5 (01:28→22:05)
[2018-06-01] MEDS: Insulin NovoLOG Aspart Correctional Sugar Inj SQ SCH ×4 (02:02→19:49)
[2018-06-01] MEDS: Oral Hygiene Kit OROPHARYNG SCH ×4 (02:04→19:48)
[2018-06-01] MEDS: Multivitamin Inj 10 ML, Thiamine Inj 100 MG, Folic Acid Inj 1 MG in Sodium Chlor 0.9% I... IV.SIG SCH (02:34)
[2018-06-01] MEDS: Chlorhexidine Gluconate 2% 1 Pack (2 Cloths) TOPICAL SCH (03:40)
[2018-06-01] MEDS ORDERED: Chlorhexidine Gluconate 2% 1 Pack (2 Cloths) TOPICAL PRN (04:00)
[2018-06-01] MEDS: Heparin - SQ 10,000 UNITS/ML Vial SQ SCH ×3 (05:26→21:11)
[2018-06-01 05:42] LABS: Activated Partial Thrombo Time 24.7 sec (24.3-30.1); Prothrombin Time 10.5 sec (9.8-11.6)
[2018-06-01 05:45] LABS: Baso % (Auto) 0.4 % (0.0-2.0); Eos # (Auto) 0.1 th/mm3 (0.0-0.4); Eos % (Auto) 0.9 % (0.0-4.0); Hematocrit 44.3 % (39.0-51.0); Hemoglobin 15.6 gm/dL (13.0-17.0); Lymph # (Auto) 1.5 th/mm3 (1.0-4.8); Lymph % (Auto) 20.1 % (9.0-44.0); Mean Corpuscular HGB Conc 35.1 % (32.0-36.0); Mean Corpuscular Hemoglobin 34.4 pg (27.0-34.0); Mean Corpuscular Volume 97.9 fL (80.0-100.0); Mean Platelet Volume 7.5 fL (7.0-11.0); Mono # (Auto) 0.8 th/mm3 (0.0-0.9); Mono % (Auto) 10.6 % (0.0-8.0); Platelet Count 177 th/mm3 (150-450); Red Blood Count 4.53 mil/mm3 (4.50-5.90); Red Cell Distribution Width 12.5 % (11.6-17.2); White Blood Count 7.4 th/mm3 (4.0-11.0)
[2018-06-01 05:53] LABS: Alanine Aminotransferase 41 U/L (12-78); Albumin 3.4 g/dL (3.4-5.0); Anion Gap 10 meq/L (5-15); Aspartate Aminotransferase 36 U/L (15-37); Blood Urea Nitrogen 6 mg/dL (7-18); Calcium 8.1 mg/dL (8.5-10.1); Carbon Dioxide 24.2 meq/L (21.0-32.0); Chloride 110 meq/L (98-107); Glomerular Filtration Rate 88 mL/min (>89); Glucose,Random 65 mg/dL (74-106); Magnesium 2.1 mg/dL (1.5-2.5); Phosphorus 4.1 mg/dL (2.5-4.9); Potassium 4.1 meq/L (3.5-5.1); Sodium 144 meq/L (136-145)
[2018-06-01 05:57] LABS: Alkaline Phosphatase 84 U/L (45-117); Prealbumin 21 mg/dL (20-40); Total Protein 6.5 g/dL (6.4-8.2)
[2018-06-01] MEDS ORDERED: Chlorhexidine 0.12% Oral Kit 15 ML UDC OROPHARYNG SCH (08:00)
--- NOTE | 2018-06-01 08:26 | ECG ---
Date Performed: 05/31/2018 Time Performed: 21:03:57 PTAGE: 52 years EKG: SINUS TACHYCARDIA MODERATE ST DEPRESSION ABNORMAL ECG NO PREVIOUS TRACING DOCTOR: Elkin Burrows Interpretating Date/Time 06/01/2018 08:24:50
--- NOTE | 2018-06-01 14:10 | P.PNCC ---
Subjective Subjective Remarks/Hospital Course: 05/31: This is a 52-year-old male. Date of admission 05/31/2018 past medical history is unknown. Patient has been recently [facility] for approximately 1 week according to 2 friends per records. Patient was found by his 2 friends sitting in a beachchair with steep and water after allegedly taking tramadol and drinking alcohol. He is generally unresponsive GCS of 3. It slightly improved but went back to baseline at 3 upon admission. Patient is intubated receiving 20 mg etomidate in the 100 mg succinylcholine. Baseline laboratories revealed an EtOH level of 127. EKG revealed sinus tachycardia 107. Normal TN, QRS and QT intervals. Patient lactic acidosis of 3.5. Carboxy hemoglobin of 5.5. Chest x-ray reveals ET tube tenseness of the jacques which is been advanced. Small left pleural effusion. Since the friends are no longer available. Unable to further details of HPI, ROS, PMH, PSH, social history, or family history. 06/01: Remains sedated, orally intubated on mechanical ventilation. Gets agitated on turning on propofol. Objective Vital Signs / I&O: Vital Signs 05/31/18 20:52 05/31/18 20:55 05/31/18 21:00 Temperature 95.0 F L Pulse Rate 118 H 127 H 147 H Respiratory Rate 24 18 22 Blood Pressure 184/125 H 230/147 H 204/125 H Pulse Oximetry 100 100 100 05/31/18 21:03 05/31/18 21:10 05/31/18 21:13 Temperature Pulse Rate 118 H 110 H Respiratory Rate 20 14 Blood Pressure 193/128 H 168/109 H Pulse Oximetry 100 100 100 05/31/18 22:33 05/31/18 23:00 06/01/18 00:00 Temperature Pulse Rate 104 H 102 H 90 Respiratory Rate 16 14 14 Blood Pressure 153/99 H 144/97 H 130/85 Pulse Oximetry 100 99 99 06/01/18 00:10 06/01/18 00:58 06/01/18 01:42 Temperature Pulse Rate 89 101 H Respiratory Rate 15 Blood Pressure Pulse Oximetry 98 100 06/01/18 01:44 06/01/18 01:47 06/01/18 01:49 Temperature Pulse Rate 101 H 101 H Respiratory Rate 14 Blood Pressure 161/106 H Pulse Oximetry 99 99 06/01/18 02:00 06/01/18 03:00 06/01/18 04:00 Temperature Pulse Rate 101 H 101 H 94 H Respiratory Rate 14 14 14 Blood Pressure 161/106 H 161/106 H 135/94 H Pulse Oximetry 99 99 99 06/01/18 04:02 06/01/18 05:11 06/01/18 06:00 Temperature Pulse Rate 95 H 85 87 Respiratory Rate 16 14 14 Blood Pressure 142/96 H 155/97 H Pulse Oximetry 100 99 99 06/01/18 06:52 06/01/18 07:34 06/01/18 08:00 Temperature Pulse Rate 87 84 89 Respiratory Rate 14 10 L 16 Blood Pressure 155/97 H 133/90 Pulse Oximetry 99 100 100 06/01/18 09:00 06/01/18 11:27 06/01/18 11:29 Temperature Pulse Rate 88 82 Respiratory Rate 12 13 Blood Pressure Pulse Oximetry 100 06/01/18 12:00 Temperature Pulse Rate 89 Respiratory Rate Blood Pressure 143/91 H Pulse Oximetry Intake & Output 05/31/18 06/01/18 06/01/18 18:59 06:59 18:59 Intake Total 100 / 100 Output Total 3375 / 3375 225 / 225 Balance -3275 / -3275 -225 / -225 Weight 80.5 kg Intake: IV 100 / 100 Diprivan 1000 mg/100 ml Inj 1, 100 / 100 000 mg In 100 ml @ 5 MCG/KG/MIN 2.722 mls/hr IV.CONT TITRATE PRN Rx#:[id number] Output: Urine 375 / 375 Urine Amount (Catheter) 3000 / 3000 225 / 225 Indwelling Urethral Catheter 3000 / 3000 225 / 225 Other: Weight On Admission 90.718 kg Result Diagrams: 06/01/18 05:11 06/01/18 05:11 Imaging: Chest X-Ray 05/31/18 21:00 CONCLUSION: 1. Trace bibasilar atelectasis. 2. Probable small left pleural effusion. 3. Endotracheal tube tip is at the thoracic inlet. 4. Nasogastric tube tip in the stomach. Head CT 06/01/18 00:01 CONCLUSION: No acute intracranial abnormality is identified. Objective Remarks: HEENT/ Neuro: Sedated, orally intubated, Pallor present, no icterus, tongue/ mucosa dry Neck: No JVD Chest/Pulm: on mech vent, good air entry bilaterally, no wheezing or crackles CVS: S1-S2 regular, no murmur GI/abdomen: soft, nontender, bowel sounds sluggish Extremities: warm bilaterally, no edema Assessment and Plan - Assessment and Plan Plan: Neuro/Psych: Acute encephalopathy likely secondary to tramadol/EtOH EtOH intoxication propofol drip. Off fentanyl drip. Goal of RA SS -2 Daily sedation vacation Follow-up on EEG Acetaminophen 600 mg by mouth every 6 hours as needed pain Urine toxicology screen, acetaminophen and salicylate levels pending EtOH level elevated at 129 Vitamin bag daily 3 days CV: Sinus tachycardia Lactic acidosis Currently on normal saline at 84 cc an hour Not requiring vasopressors and/or antihypertensives Received 2 L normal saline in ED. Recheck lactic acid in a.m. until cleared Resp: Acute respiratory failure secondary to AMS Elevated carboxyhemoglobin PRVC 16/540/10/25/50 Ventilator bundle Albuterol/ipratropium aerosols every 4 hours with albuterol aerosols every 2 hours as needed for dyspnea CPAP trial/spontaneous breathing trials when clinically indicated Chest x-ray revealed ET tube 10 cm above the jacques. This was advanced. Small left pleural effusion. Cardiomegaly GI: Elevated AST NG/OGT to LIWS Famotidine for GI prophylaxis Docusate sodium/senna 1 tablet twice daily for bowel regimen : Licea catheter has been placed for accurate I's and O's in a critically ill patient Endo: SSI aspart insulin Accu-Cheks every 6 hours to maintain euglycemia/low regimen TSH was 2.6 Renal: Monitor urine output Accurate I's and O's Heme: CBC within normal limits INR 1.0 No indication for transfusion of blood products at this time ID: Monitor for signs and symptomatology of infection FEN: Replace electrolytes as clinically indicated per ICU likely protocol MSK: PT evaluate and treat Access -Utilize peripheral IV. Central line if indicated Prophylaxis -GI -famotidine -DVT -SCD/holding pharmacological prophylaxis pending CT Critical time 35 minutes
[2018-06-01] MEDS: Chlorhexidine 0.12% Oral Kit 15 ML UDC OROPHARYNG SCH ×2 (15:52→20:13)
[2018-06-01] MEDS: Hypromellose 0.3% Opth Gel 10 GM Bottle EACH EYE SCH ×2 (15:52→20:14)
[2018-06-01] MEDS: Sod Chloride 0.9% Inj 1,000 ML IV.CONT SCH ×2 (15:53→22:06)
[2018-06-01] MEDS: Senna/Docusate Sodium 8.6/50 MG Tablet PO SCH ×2 (15:53→20:12)
[2018-06-01] MEDS: Famotidine PF Inj 20 MG/2 ML Vial IV.PUSH SCH ×2 (15:53→20:12)
--- NOTE | 2018-06-01 18:32 | MG ---
cc: Filiberto Zamarripa MD EEG NUMBER: [id number] INDICATION: Unresponsive on beach by friends. MEDICATIONS: 1. Tramadol. 2. Alcohol. 3. Propofol. FINDINGS: Diffuse beta rhythms are seen. Overall recording is synchronous and symmetric. He never reaches a good alpha rhythm posteriorly. Photic stimulation is performed without significant posterior driving. Hyperventilation is not performed. A few bursts of alpha rhythms are seen towards the end of the recording. He had a right arm jerk which did not correlate with any seizure activity. IMPRESSION: Some medication effect. Otherwise, an unremarkable electroencephalogram. MD GERMAINE Braden/tavo , 05:55 PM , 05:59 PM
[2018-06-02] MEDS: Insulin NovoLOG Aspart Correctional Sugar Inj SQ SCH ×3 (00:51→12:49)
[2018-06-02] MEDS: Oral Hygiene Kit OROPHARYNG SCH ×4 (00:52→16:15)
[2018-06-02] MEDS: Multivitamin Inj 10 ML, Thiamine Inj 100 MG, Folic Acid Inj 1 MG in Sodium Chlor 0.9% I... IV.SIG SCH (01:01)
[2018-06-02] MEDS: Propofol 1000 mg/100 ml Inj 1,000 MG/100 ML BOTTLE IV.CONT PRN ×2 (02:32→06:03)
[2018-06-02] MEDS: Chlorhexidine Gluconate 2% 1 Pack (2 Cloths) TOPICAL SCH (06:03)
[2018-06-02] MEDS: Heparin - SQ 10,000 UNITS/ML Vial SQ SCH ×3 (06:11→21:24)
[2018-06-02] MEDS: Famotidine PF Inj 20 MG/2 ML Vial IV.PUSH SCH ×2 (08:01→21:23)
[2018-06-02] MEDS: Senna/Docusate Sodium 8.6/50 MG Tablet PO SCH ×2 (08:01→20:27)
--- NOTE | 2018-06-02 08:12 | P.PNCC ---
Subjective Subjective Remarks/Hospital Course: 05/31: This is a 52-year-old male. Date of admission 05/31/2018 past medical history is unknown. Patient has been recently [facility] for approximately 1 week according to 2 friends per records. Patient was found by his 2 friends sitting in a beachchair with steep and water after allegedly taking tramadol and drinking alcohol. He is generally unresponsive GCS of 3. It slightly improved but went back to baseline at 3 upon admission. Patient is intubated receiving 20 mg etomidate in the 100 mg succinylcholine. Baseline laboratories revealed an EtOH level of 127. EKG revealed sinus tachycardia 107. Normal SC, QRS and QT intervals. Patient lactic acidosis of 3.5. Carboxy hemoglobin of 5.5. Chest x-ray reveals ET tube tenseness of the jacques which is been advanced. Small left pleural effusion. Since the friends are no longer available. Unable to further details of HPI, ROS, PMH, PSH, social history, or family history. 06/01: Remains sedated, orally intubated on mechanical ventilation. Gets agitated on turning on propofol. 06/02: Remains sedated, orally intubated on mechanical ventilation. Objective Vital Signs / I&O: Vital Signs 06/01/18 09:00 06/01/18 10:00 06/01/18 11:00 Temperature Pulse Rate 88 88 84 Respiratory Rate 12 12 12 Blood Pressure 140/89 146/95 H 157/91 H Pulse Oximetry 100 100 100 06/01/18 11:27 06/01/18 11:29 06/01/18 12:00 Temperature Pulse Rate 82 85 Respiratory Rate 12 13 13 Blood Pressure 143/91 H Pulse Oximetry 100 100 06/01/18 13:00 06/01/18 14:00 06/01/18 15:00 Temperature Pulse Rate 85 85 89 Respiratory Rate 13 16 16 Blood Pressure 141/87 H 123/80 135/89 Pulse Oximetry 100 100 100 06/01/18 15:24 06/01/18 16:00 06/01/18 17:13 Temperature Pulse Rate 86 89 91 H Respiratory Rate 15 15 17 Blood Pressure 145/99 H 139/96 H Pulse Oximetry 100 100 100 06/01/18 18:00 06/01/18 19:00 06/01/18 20:00 Temperature 99.1 F Pulse Rate 93 H 87 89 Respiratory Rate 20 19 20 Blood Pressure 130/99 H 131/86 121/79 Pulse Oximetry 100 100 98 06/01/18 20:03 06/01/18 21:00 06/01/18 22:00 Temperature Pulse Rate 85 101 H 91 H Respiratory Rate 18 17 19 Blood Pressure 152/96 H 150/98 H Pulse Oximetry 100 100 100 06/01/18 23:00 06/01/18 23:49 06/02/18 00:00 Temperature 98.9 F Pulse Rate 86 83 84 Respiratory Rate 22 17 19 Blood Pressure 140/95 H 148/96 H Pulse Oximetry 100 99 100 06/02/18 01:00 06/02/18 02:00 06/02/18 03:00 Temperature Pulse Rate 90 85 77 Respiratory Rate 18 15 15 Blood Pressure 126/79 116/76 107/69 Pulse Oximetry 98 98 100 06/02/18 03:46 06/02/18 04:00 06/02/18 05:00 Temperature 98.7 F Pulse Rate 74 75 82 Respiratory Rate 15 16 17 Blood Pressure 109/73 128/85 Pulse Oximetry 100 100 100 06/02/18 06:00 06/02/18 07:57 Temperature Pulse Rate 86 Respiratory Rate 21 13 Blood Pressure 136/90 Pulse Oximetry 100 98 Intake & Output 06/01/18 06/02/18 06/02/18 18:59 06:59 18:59 Intake Total 1300 / 1300 2362.4 / 2362.4 Output Total 1800 / 1800 1275 / 1275 Balance -500 / -500 1087.4 / 1087.4 Weight 80.5 kg Intake: IV 1300 / 1300 2222.4 / 2222.4 Diprivan 1000 mg/100 ml Inj 1, 300 / 300 200 / 200 000 mg In 100 ml @ 5 MCG/KG/MIN 2.722 mls/hr IV.CONT TITRATE PRN Rx#:[id number] NS Inj 1,000 ML @ 84 mls/hr IV. 1000 / 1000 1000 / 1000 CONT .[id number] [facility] Rx#:[id number] MVI-12 Inj 10 ML Thiamine Inj 1022.4 / 1022.4 100 MG Folvite Inj 1 MG In NS Inj 500 ML @ 125 mls/hr IV.SIG Q24H [facility] Rx#:[id number] Tube Irrigant 140 / 140 Output: Urine Amount (Catheter) 1800 / 1800 1275 / 1275 Indwelling Urethral Catheter 1800 / 1800 1275 / 1275 Other: # Bowel Movements 0 Result Diagrams: 06/01/18 05:11 06/01/18 05:11 Objective Remarks: HEENT/ Neuro: Sedated, orally intubated, no pallor, no icterus, tongue/ mucosa moist Neck: No JVD Chest/Pulm: on mech vent, good air entry bilaterally, no wheezing or crackles CVS: S1-S2 regular, no murmur GI/abdomen: soft, nontender, bowel sounds sluggish Extremities: warm bilaterally, no edema Assessment and Plan - Assessment and Plan Plan: Neuro/Psych: Acute encephalopathy likely secondary to tramadol/EtOH EtOH intoxication propofol drip. Off fentanyl drip. Goal of RA SS -2 Daily sedation vacation Follow-up on EEG Acetaminophen 600 mg by mouth every 6 hours as needed pain Urine toxicology screen, acetaminophen and salicylate levels pending EtOH level elevated at 129 Vitamin bag daily 3 days CV: Sinus tachycardia Lactic acidosis Currently on normal saline at 84 cc an hour Not requiring vasopressors and/or antihypertensives Received 2 L normal saline in ED. Recheck lactic acid in a.m. until cleared Resp: Acute respiratory failure secondary to AMS Elevated carboxyhemoglobin PRVC 16/540/1/5/50 Ventilator bundle Albuterol/ipratropium aerosols every 4 hours with albuterol aerosols every 2 hours as needed for dyspnea CPAP trial/spontaneous breathing trials when clinically indicated Chest x-ray revealed ET tube 10 cm above the jacques. This was advanced. Small left pleural effusion. Cardiomegaly GI: Elevated AST NG/OGT to LIWS Famotidine for GI prophylaxis Docusate sodium/senna 1 tablet twice daily for bowel regimen : Licea catheter has been placed for accurate I's and O's in a critically ill patient Endo: SSI aspart insulin Accu-Cheks every 6 hours to maintain euglycemia/low regimen TSH was 2.6 Renal: Monitor urine output Accurate I's and O's Heme: CBC within normal limits INR 1.0 No indication for transfusion of blood products at this time ID: Monitor for signs and symptomatology of infection FEN: Replace electrolytes as clinically indicated per ICU likely protocol MSK: PT evaluate and treat Access -Utilize peripheral IV. Central line if indicated Prophylaxis -GI -famotidine -DVT -SCD/ subcutaneous Heparin
[2018-06-02] MEDS: Chlorhexidine 0.12% Oral Kit 15 ML UDC OROPHARYNG SCH ×2 (10:27→20:26)
[2018-06-02] MEDS: Hypromellose 0.3% Opth Gel 10 GM Bottle EACH EYE SCH ×2 (10:27→20:26)
[2018-06-02] MEDS: Sod Chloride 0.9% Inj 1,000 ML IV.CONT SCH ×3 (10:34→23:23)
[2018-06-03] MEDS: Oral Hygiene Kit OROPHARYNG SCH ×5 (00:52→23:53)
[2018-06-03] MEDS: Multivitamin Inj 10 ML, Thiamine Inj 100 MG, Folic Acid Inj 1 MG in Sodium Chlor 0.9% I... IV.SIG SCH (01:01)
[2018-06-03] MEDS: Insulin NovoLOG Aspart Correctional Sugar Inj SQ SCH ×4 (01:44→19:57)
[2018-06-03] MEDS ORDERED: Haloperidol Inj 5 MG/ML Ampul IV.PUSH PRN (03:15)
[2018-06-03] MEDS: Chlorhexidine Gluconate 2% 1 Pack (2 Cloths) TOPICAL SCH (04:28)
[2018-06-03] MEDS: LORazepam 1 MG Tablet PO PRN (04:28)
[2018-06-03] MEDS: Heparin - SQ 10,000 UNITS/ML Vial SQ SCH ×2 (06:03→13:36)
[2018-06-03 08:06] LABS: Baso % (Auto) 0.3 % (0.0-2.0); Eos # (Auto) 0.1 th/mm3 (0.0-0.4); Eos % (Auto) 1.4 % (0.0-4.0); Hematocrit 39.4 % (39.0-51.0); Hemoglobin 13.8 gm/dL (13.0-17.0); Lymph # (Auto) 0.8 th/mm3 (1.0-4.8); Lymph % (Auto) 15.6 % (9.0-44.0); Mean Corpuscular Hemoglobin 34.7 pg (27.0-34.0); Mean Platelet Volume 7.4 fL (7.0-11.0); Mono # (Auto) 0.5 th/mm3 (0.0-0.9); Mono % (Auto) 9.6 % (0.0-8.0); Neut # (Auto) 3.7 th/mm3 (1.8-7.7); Neut % (Auto) 73.1 % (16.0-70.0); Platelet Count 132 th/mm3 (150-450); Red Blood Count 3.98 mil/mm3 (4.50-5.90); Red Cell Distribution Width 12.5 % (11.6-17.2)
[2018-06-03 08:39] LABS: Anion Gap 9 meq/L (5-15); Blood Urea Nitrogen 6 mg/dL (7-18); Calcium 8.4 mg/dL (8.5-10.1); Carbon Dioxide 23.2 meq/L (21.0-32.0); Chloride 108 meq/L (98-107); Glomerular Filtration Rate Greater Than 89 mL/min (>89); Glucose,Random 93 mg/dL (74-106); Potassium 3.5 meq/L (3.5-5.1); Sodium 140 meq/L (136-145)
[2018-06-03] MEDS: Hypromellose 0.3% Opth Gel 10 GM Bottle EACH EYE SCH (09:57)
[2018-06-03] MEDS: Chlorhexidine 0.12% Oral Kit 15 ML UDC OROPHARYNG SCH ×2 (09:57→19:11)
[2018-06-03] MEDS: Senna/Docusate Sodium 8.6/50 MG Tablet PO SCH ×2 (09:59→20:01)
[2018-06-03] MEDS: Famotidine PF Inj 20 MG/2 ML Vial IV.PUSH SCH ×2 (10:09→20:01)
--- NOTE | 2018-06-03 11:14 | P.PN ---
Subjective Interval history: Nursing denies any deterioration since last night. Patient himself reports having too many bowel movements, wherein here the nurse states that he is getting lactulose twice a day.. He is able to demonstrate orientation but when it comes to insight, he actually mentions that the reason why he is in the hospital because he "slit my wrist." When I asked him why he did this, he does not have an answer. Does not explicitly affirm any suicidal ideation. Physical Exam Vital signs: Vital Signs 06/02/18 11:30 06/02/18 12:00 06/02/18 13:00 Temperature 99.1 F Pulse Rate 86 95 H 95 H Respiratory Rate 16 22 22 Blood Pressure 124/80 118/82 Pulse Oximetry 96 95 06/02/18 14:00 06/02/18 14:23 06/02/18 15:00 Temperature Pulse Rate 103 H 98 H 97 H Respiratory Rate 26 H 22 29 H Blood Pressure 116/77 129/87 Pulse Oximetry 95 95 06/02/18 16:00 06/02/18 19:39 06/02/18 20:00 Temperature 99.4 F 97.8 F Pulse Rate 90 101 H 119 H Respiratory Rate 23 18 21 Blood Pressure 122/74 139/81 Pulse Oximetry 96 99 06/02/18 22:23 06/02/18 23:54 06/03/18 04:00 Temperature 98.3 F 98.1 F Pulse Rate 101 H 106 H 118 H Respiratory Rate 22 21 Blood Pressure 149/85 H 155/96 H Pulse Oximetry 97 97 06/03/18 08:00 Temperature 98.0 F Pulse Rate 97 H Respiratory Rate 20 Blood Pressure 142/83 H Pulse Oximetry 91 L Intake & Output 06/02/18 06/03/18 06/03/18 18:59 06:59 18:59 Intake Total 1160 / 1160 1751.2 / 1751.2 Output Total 75 / 75 0 / 0 Balance 1085 / 1085 1751.2 / 1751.2 Weight 80 kg Intake: IV 1100 / 1100 1511.2 / 1511.2 Diprivan 1000 mg/100 ml Inj 1, 50 / 50 000 mg In 100 ml @ 5 MCG/KG/MIN 2.722 mls/hr IV.CONT TITRATE PRN Rx#:[id number] NS Inj 1,000 ML @ 84 mls/hr IV. 1000 / 1000 1000 / 1000 CONT .[id number] [facility] Rx#:[id number] MVI-12 Inj 10 ML Thiamine Inj 511.2 / 511.2 100 MG Folvite Inj 1 MG In NS Inj 500 ML @ 125 mls/hr IV.SIG Q24H [facility] Rx#:[id number] fentaNYL 10 mcg/mL Premix Drip 50 / 50 2,500 mcg In 250 ml @ 50 MCG/HR 5 mls/hr IV.SIG TITRATE PRN Rx #:[id number] Oral 0 / 0 240 / 240 Tube Feeding 0 / 0 Tube Irrigant 60 / 60 Output: Urine 75 / 75 0 / 0 Other: Date of Last Bowel Movement 06/03/18 # Bowel Movements 0 3 Narrative: Drowsy but easily aroused Demonstrates orientation 3 Unlabored breathing, clear lungs bilaterally - Urinary Catheter Management Indwelling Urethral Catheter Cath placed during this visit: yes, but has since been removed by the nurse Reason for continuing: Decision to DC catheter Insertion date: 05/31/18 Insertion time: 23:00 Removal date: 06/02/18 Removal time: 08:30 Results - Labs CBC & Chem 7: 06/03/18 07:45 06/03/18 07:45 Laboratory Results - last 24 hr 06/02/18 06/02/18 06/02/18 12:23 18:30 23:21 WBC RBC Hgb Hct MCV MCH MCHC RDW Plt Count MPV Neut % (Auto) Lymph % (Auto) [place] % (Auto) Eos % (Auto) Baso % (Auto) Neut # (Auto) Lymph # (Auto) [place] # (Auto) Eos # (Auto) Baso # (Auto) WBC Differential Differential Comment Sodium Potassium Chloride Carbon Dioxide Anion Gap BUN Creatinine Estimated GFR POC Glucose 136 H 123 H 96 Random Glucose Calcium Ammonia 06/03/18 06/03/18 06/03/18 01:41 06:02 07:45 WBC RBC Hgb Hct MCV MCH MCHC RDW Plt Count MPV Neut % (Auto) Lymph % (Auto) [place] % (Auto) Eos % (Auto) Baso % (Auto) Neut # (Auto) Lymph # (Auto) [place] # (Auto) Eos # (Auto) Baso # (Auto) WBC Differential Differential Comment Sodium Potassium Chloride Carbon Dioxide Anion Gap BUN Creatinine Estimated GFR POC Glucose 115 H 113 H Random Glucose Calcium Ammonia 25 06/03/18 06/03/18 07:45 07:45 WBC 5.0 RBC 3.98 L Hgb 13.8 Hct 39.4 MCV 99.0 MCH 34.7 H MCHC 35.0 RDW 12.5 Plt Count 132 L MPV 7.4 Neut % (Auto) 73.1 H Lymph % (Auto) 15.6 [place] % (Auto) 9.6 H Eos % (Auto) 1.4 Baso % (Auto) 0.3 Neut # (Auto) 3.7 Lymph # (Auto) 0.8 L [place] # (Auto) 0.5 Eos # (Auto) 0.1 Baso # (Auto) 0.0 WBC Differential . Differential Comment Auto diff final Sodium 140 Potassium 3.5 Chloride 108 H Carbon Dioxide 23.2 Anion Gap 9 BUN 6 L Creatinine 0.83 Estimated GFR Greater than 89 POC Glucose Random Glucose 93 Calcium 8.4 L Ammonia Assessment and Plan - Plan 52-year-old white male who was admitted with acute encephalopathy suspected to be secondary to alcohol intoxication, was intubated, sent to the ICU. Has been extubated with no complications. Acute encephalopathy likely secondary to tramadol/EtOH EtOH intoxication Significantly improved, CIWA score is 9 this morning, will continue to monitor for another 24 hours Sinus tachycardia Lactic acidosis Likely secondary to alcohol intoxication, improving, hemodynamically stable today Acute respiratory failure secondary to AMS Small left pleural effusion. Cardiomegaly Elevated AST Suspected to be secondary to alcohol intoxication, improving Possible suicidal behavior psychiatry consulted -DVT -SCD/ subcutaneous Heparin
--- NOTE | 2018-06-03 13:06 | P.CONPSY ---
Provisional Diagnosis Admission Date: May 31, 2018 23:58 [place] I.: Alcohol use disorder, alcohol induced mood disorder, History of Present Illness Service: Medicine Primary Care Provider: UNKNOWN Chief Complaint: Unresponsive unresponsive History of Present Illness: The patient is a 52-year-old man, was, unemployed, with psychiatric history of alcohol mood disorder, alcohol use disorder, no previous psychiatric hospitalizations, extensive history of self cutting behavior without SI, multiple rehab/detox, no significant medical history who was admitted with acute encephalopathy suspected to be secondary to alcohol intoxication, was intubated, sent to the ICU. Has been extubated with no complications. The patient has expressed that he came to the hospital because he cut himself, so he was consulted to psychiatry. On my psychiatric evaluation today I find the patient that is lethargic, superficially cooperative, very sleepy. However, he is able to say that he has an okay mood, he says that he has cut himself in the past, but no recently, he was able to show me his scars. The patient now denies suicidal and homicidal ideation, he denies visual and auditory hallucinations. The patient is interested in treatment for alcoholism, detox and rehab. He is oriented 3. He denies the use of illegal drugs and alcohol. Review of Systems Constitutional: Reports fatigue, Reports lack of energy Ears, Nose, Mouth, and Throat: Denies abnormal hearing, Denies bleeding gums, Denies bad breath, Denies change in voice, Denies dental pain, Denies difficulty swallowing, Denies dizziness, Denies dry mouth, Denies ear discharge , Denies ear pain, Denies facial pain, Denies headache(s), Denies hearing loss, Denies hoarseness, Denies lip swelling, Denies nosebleed, Denies mouth lesions, Denies mouth pain, Denies nasal congestion, Denies nasal discharge, Denies nasal obstruction, Denies nasal trauma, Denies neck lump, Denies neck pain, Denies nose pain, Denies pain with swallowing, Denies poor balance, Denies post nasal drip, Denies ringing in the ears, Denies sinus pain, Denies sinus pressure , Denies sore throat, Denies throat swelling, Denies tongue swelling, Denies other Cardiovascular: Denies chest pain, Denies chest pain at rest, Denies chest pain with activity, Denies excessive sweating, Denies fainting, Denies fast heart rate, Denies foot swelling, Denies generalized swelling, Denies irregular heart rhythm, Denies leg pain with activity, Denies leg sores, Denies leg swelling, Denies lightheadedness, Denies radiating jaw, neck or arm pain, Denies rapid, pounding, or irregular heartbeat, Denies shortness of breath, Denies shortness of breath with activity, Denies shortness of breath when lying down, Denies shortness of breath causing sudden awakening, Denies slow heart rate, Denies other Respiratory: Denies change in phlegm color, Denies chest congestion, Denies cough, Denies coughing up blood, Denies excessive phlegm production, Denies pain on inspiration, Denies pain with cough, Denies shortness of breath, Denies shortness of breath with activity, Denies snoring, Denies stridor, Denies wheezing, Denies other Gastrointestinal: Denies abdominal pain, Denies belching, Denies black, tarry stools, Denies bloating, Denies bright, red blood in stools, Denies change in bowel habits, Denies constant urge to pass stool, Denies change in stools, Denies coffee ground vomit, Denies constipation, Denies cramping, Denies difficulty swallowing, Denies excessive passing of gas, Denies feeling full early, Denies heartburn, Denies incontinent of stools, Denies loose stools, Denies nausea, Denies pain with swallowing, Denies vomiting, Denies vomiting blood, Denies other Genitourinary: Denies blood in semen, Denies blood in urine, Denies decreased urination, Denies difficulty urinating, Denies difficulty with ejaculations, Denies erectile dysfunction, Denies genital lesions, Denies genital pain, Denies painful urination, Denies side pain, Denies frequent nighttime urination , Denies painful ejaculations, Denies penile discharge, Denies scrotal swelling , Denies testicle lump, Denies testicle pain, Denies urinary frequency, Denies urinary hesitancy, Denies urinary incontinence, Denies urinary urgency, Denies other Musculoskeletal: Denies abnormal walking, Denies back pain, Denies body aches, Denies decreased muscle mass, Denies deformity, Denies joint pain, Denies joint swelling, Denies limited joint movement, Denies loss of height, Denies muscle cramps, Denies muscle weakness, Denies neck pain, Denies numbness, Denies radiating pain into limb, Denies stiffness, Denies tingling, Denies other Psychiatric: Denies abnormal sleep pattern, Denies anxiety, Denies behavioral changes, Denies change in appetite, Denies change in sex drive, Denies confusion , Denies depression, Denies difficulty concentrating, Denies hearing things others do not hear, Denies hopelessness, Denies irritability, Denies lack of enjoyment, Denies memory loss, Denies mood swings, Denies panic attacks, Denies paranoia, Denies seeing things others do not see, Denies sensing things others do not sense, Denies tactile hallucinations, Denies thoughts of hurting/killing others, Denies thoughts of hurting/killing yourself, Denies other PMFSH - History History Provided By: Patient - Medical / Surgical Hx Neg / Unobtainable Medical Problems Denied: Unable to Obtain - Medical History Medical History: Medical History (Last Reviewed 06/01/18 @ 09:27 by Casper Rubio) Medical history unknown - Surgical History Surgical History: Surgical History (Last Reviewed 06/01/18 @ 09:27 by Casper Rubio) Surgical history unknown (Acute) - Family History Family History: Family History (Last Updated 05/31/18 @ 23:24 by Rl Wolfe MD) Other Family history unobtainable - Tobacco History Smoking Status: Unknown if ever smoked - Alcohol History How Often Do You Have a Drink Containing Alcohol: Unable to Obtain - Substance Use History Substance History: Unable to Obtain - Travel History Recent Travel in the [place] Within the Last 8 Weeks: No Recent Travel Out of the Country Within the Last 8 Weeks: No - Immunization History Tetanus Immunization: Unsure Hx Influenza Vaccine This Season: No Medications and Allergies Active Medications: Active Medications Acetaminophen (Tylenol) 650 mg PO Q6H PRN PRN Reason: PAIN 1-10 AND/OR FEVER >101F Al Hydroxide/Mg Hydroxide (Milk Of Magnesia Liq) 30 ml PO Q12H PRN PRN Reason: Mild Constipation Albuterol (Albuterol Neb (Prn)) 2.5 mg NEB Q2HR NEB PRN PRN Reason: SHORTNESS OF BREATH/WHEEZING Albuterol (Duoneb Neb (Fidelia)) 1 ampul NEB Q4HR NEB [facility] Last Admin: 06/03/18 07:25 Dose: Not Given Artificial Tears (Genteal Severe Dry Eye Relief 0.3% Opth Gel) 1 drops EACH EYE BID [facility] Last Admin: 06/03/18 09:57 Dose: Not Given Bisacodyl (Dulcolax Supp) 10 mg RECTAL DAILY PRN PRN Reason: SEVERE CONSITIPATION Chlorhexidine Gluconate (Chlorhexidine 2% Cloth) 3 pack TOPICAL DAILY@0400 [facility] Stop: 06/06/18 03:59 Last Admin: 06/03/18 04:28 Dose: Not Given Chlorhexidine Gluconate (Chlorhexidine 2% Cloth) 3 pack TOPICAL DAILY@0400 PRN PRN Reason: Extra cloth needed Stop: 06/06/18 03:59 Last Admin: 06/02/18 20:27 Dose: 3 pack Chlorhexidine Gluconate (Peridex 0.12% Oral Kit) 15 ml OROPHARYNG BID@0800, 2000 [facility] Last Admin: 06/03/18 09:57 Dose: Not Given Dextrose (D50w Vial) 50 ml IV.PUSH UNSCH PRN PRN Reason: PER HYPOGLYCEMIA PROTOCOL Famotidine (Pepcid Pf Inj) 20 mg IV.PUSH Q12HR [facility] Last Admin: 06/03/18 10:09 Dose: 20 mg Flumazenil (Romazecon Inj) 0.2 mg IV.PUSH Q1M PRN PRN Reason: OVERSEDATION Glucagon (Glucagon Inj) 1 mg OTHER PRN PRN PRN Reason: for Hypoglycemia Protocol Haloperidol Lactate (Haldol Inj) 1 mg IV.PUSH Q15M PRN PRN Reason: for severe agitation Heparin Sodium (Porcine) (Heparin Inj) 5,000 units SQ Q8HR [facility] Last Admin: 06/03/18 06:03 Dose: 5,000 units Fentanyl (Fentanyl 10 Mcg/Ml Premix Drip) 2,500 mcg in 250 mls @ 5 mls/hr IV.SIG TITRATE PRN; Protocol PRN Reason: Per Protocol Last Titration: 06/02/18 09:15 Dose: Infused Propofol (Diprivan 1000 Mg/100 Ml Inj) 1,000 mg in 100 mls @ 2.722 mls/hr IV.CONT TITRATE PRN; Protocol PRN Reason: Per Protocol Last Titration: 06/02/18 10:28 Dose: Infused Sodium Chloride (Ns Inj) 1,000 mls @ 84 mls/hr IV.CONT .[id number] [facility] Last Admin: 06/02/18 23:23 Dose: Not Given Magnesium Sulfate Inj 4 gm/ (Sodium Chloride) 100 mls @ 50 mls/hr IV.SIG UNSCH PRN PRN Reason: For Magnesium 0.9 - 1.1 mg/dL Magnesium Sulfate Inj 2 gm/ (Sodium Chloride) 100 mls @ 50 mls/hr IV.SIG UNSCH PRN PRN Reason: For Magnesium 1.2 - 1.6 mg/dL Potassium Chloride (Kcl 20 Meq Premix Inj) 20 meq in 100 mls @ 50 mls/hr IV.SIG Q2H PRN PRN Reason: For Potassium 3.3 - 3.5 mEq/L Potassium Chloride (Kcl 40 Meq Premix Inj) 40 meq in 100 mls @ 25 mls/hr IV.SIG UNSCH PRN PRN Reason: For Potassium 3.3 - 3.5 mEq/L Potassium Chloride (Kcl 20 Meq Premix Inj) 20 meq in 100 mls @ 50 mls/hr IV.SIG Q2H PRN PRN Reason: For Potassium 2.8 - 3.2 mEq/L Potassium Phosphate 30 mmol/ (Sodium Chloride) 260 mls @ 42 mls/hr IV.SIG UNSCH PRN PRN Reason: SEE LABEL COMMENTS Sodium Phosphate 30 mmol/ (Sodium Chloride) 260 mls @ 42 mls/hr IV.SIG UNSCH PRN PRN Reason: For Phosphorus < 2.5 mg/dL Potassium Chloride (Kcl 40 Meq Premix Inj) 40 meq in 100 mls @ 25 mls/hr IV.SIG Q2H PRN PRN Reason: For Potassium 2.8 - 3.2 mEq/L Insulin Aspart (Novolog Insulin Correctional Sugar Inj) 0 unit SQ Q6HR [facility]; Protocol Last Admin: 06/03/18 06:02 Dose: Not Given Lactulose (Lactulose Liq) 30 ml PO DAILY PRN PRN Reason: SEVERE CONSITIPATION Lactulose (Lactulose Liq) 30 ml PO BID [facility] Last Admin: 06/03/18 09:59 Dose: Not Given Lorazepam (Ativan) 1 mg PO Q4H PRN PRN Reason: for CIWA 8-10 Last Admin: 06/03/18 04:28 Dose: 1 mg Lorazepam (Ativan) 2 mg PO Q2H PRN PRN Reason: for CIWA 11-14 Lorazepam (Ativan Inj) 2 mg IV.PUSH Q2H PRN PRN Reason: for CIWA 11-14 Lorazepam (Ativan Inj) 2 mg IV.PUSH Q1H PRN PRN Reason: for CIWA 15-20 Lorazepam (Ativan Inj) 1 mg IV.PUSH Q4H PRN PRN Reason: for CIWA 8-10 Last Admin: 06/03/18 10:08 Dose: 1 mg Lorazepam (Ativan Inj) 2 mg IV.PUSH Q15M PRN PRN Reason: for CIWA > 20 Magnesium Oxide (Mag-Ox) 800 mg PO UNSCH PRN PRN Reason: For Magnesium 1.2 - 1.6 mg/dL Potassium Bicarb/Potassium Chloride (K-Lyte Cl Eff) 50 meq PO UNSCH PRN PRN Reason: For Potassium 3.3 - 3.5 mEq/L Potassium Phosphate (K-Phos Original) 2,000 mg PO Q4H PRN PRN Reason: Phosphorus Less Than 2.5 mg/dL Potassium Phosphate (K-Phos Original) 2,000 mg PO UNSCH PRN PRN Reason: SEE LABEL COMMENTS Senna/Docusate Sodium (Krystina-Colace) 1 tab PO BID [facility] Last Admin: 06/03/18 09:59 Dose: Not Given Sennosides (Senokot) 17.2 mg PO Q12H PRN PRN Reason: Moderate Constipation Sodium Chloride (Ns Flush) 2 ml IV.FLUSH BID [facility] Last Admin: 06/03/18 09:59 Dose: Not Given Sodium Chloride (Ns Flush) 2 ml IV.FLUSH PRN PRN PRN Reason: FLUSH AFTER USING IV ACCESS Allergies Allergy/AdvReac Type Severity Reaction Status Date / Time No Allergy Information Allergy Unverified 05/31/18 21:00 Available Home Medications Medication Instructions Recorded Confirmed Type Unable to Obtain Home Meds 05/31/18 05/31/18 History Exam Vital signs: Vital Signs 06/02/18 13:00 06/02/18 14:00 06/02/18 14:23 Temperature Pulse Rate 95 H 103 H 98 H Respiratory Rate 22 26 H 22 Blood Pressure 118/82 116/77 Pulse Oximetry 95 95 06/02/18 15:00 06/02/18 16:00 06/02/18 19:39 Temperature 99.4 F Pulse Rate 97 H 90 101 H Respiratory Rate 29 H 23 18 Blood Pressure 129/87 122/74 Pulse Oximetry 95 96 06/02/18 20:00 06/02/18 22:23 06/02/18 23:54 Temperature 97.8 F 98.3 F Pulse Rate 119 H 101 H 106 H Respiratory Rate 21 22 Blood Pressure 139/81 149/85 H Pulse Oximetry 99 97 06/03/18 04:00 06/03/18 08:00 06/03/18 12:00 Temperature 98.1 F 98.0 F 97.7 F Pulse Rate 118 H 97 H 96 H Respiratory Rate 21 20 20 Blood Pressure 155/96 H 142/83 H 145/89 H Pulse Oximetry 97 91 L 91 L Intake & Output 06/02/18 06/03/18 06/03/18 18:59 06:59 18:59 Intake Total 1160 / 1160 1751.2 / 1751.2 Output Total 75 / 75 0 / 0 Balance 1085 / 1085 1751.2 / 1751.2 Weight 80 kg Intake: IV 1100 / 1100 1511.2 / 1511.2 Diprivan 1000 mg/100 ml Inj 1, 50 / 50 000 mg In 100 ml @ 5 MCG/KG/MIN 2.722 mls/hr IV.CONT TITRATE PRN Rx#:[id number] NS Inj 1,000 ML @ 84 mls/hr IV. 1000 / 1000 1000 / 1000 CONT .[id number] [facility] Rx#:[id number] MVI-12 Inj 10 ML Thiamine Inj 511.2 / 511.2 100 MG Folvite Inj 1 MG In NS Inj 500 ML @ 125 mls/hr IV.SIG Q24H [facility] Rx#:[id number] fentaNYL 10 mcg/mL Premix Drip 50 / 50 2,500 mcg In 250 ml @ 50 MCG/HR 5 mls/hr IV.SIG TITRATE PRN Rx #:[id number] Oral 0 / 0 240 / 240 Tube Feeding 0 / 0 Tube Irrigant 60 / 60 Output: Urine 75 / 75 0 / 0 Other: Date of Last Bowel Movement 06/03/18 # Bowel Movements 0 3 Narrative: No withdrawal symptoms at the moment Assessment and Plan - Assessment (1) Alcohol use disorder Code(s): Z71.41 - Alcohol abuse counseling and surveillance of alcoholic Status: Acute (2) Alcohol-induced mood disorder Code(s): F10.94 - Alcohol use, unspecified with alcohol-induced mood disorder Status: Acute - Plan Plan: Estimated LOS: [] days The patient does not present any evidence of acute, significant, concerning symptomatology of depression, anxiety, vipul or psychosis at the moment. He denies suicidal and homicidal ideation, he denies visual and auditory hallucinations. The patient has history of alcohol use disorder, self cutting behavior without SI, as a way to cope with the stress, he has not done it recently. He does not meet criteria for involuntary psychiatric admission. Continue CIWA. Breath supportive psychotherapy provided. Justification for Continued Inpatient Stay: Patient does not meet criteria for involuntary psychiatric admission.
[2018-06-03] MEDS: Sod Chloride 0.9% Inj 1,000 ML IV.CONT SCH ×2 (19:58→23:43)
[2018-06-04] MEDS: Hypromellose 0.3% Opth Gel 10 GM Bottle EACH EYE SCH ×3 (00:26→21:18)
[2018-06-04] MEDS: Heparin - SQ 10,000 UNITS/ML Vial SQ SCH ×4 (00:26→21:15)
[2018-06-04] MEDS: Insulin NovoLOG Aspart Correctional Sugar Inj SQ SCH ×5 (01:53→17:59)
[2018-06-04] MEDS: Oral Hygiene Kit OROPHARYNG SCH ×3 (03:43→17:59)
[2018-06-04] MEDS: Chlorhexidine Gluconate 2% 1 Pack (2 Cloths) TOPICAL SCH (03:43)
[2018-06-04] MEDS: Famotidine PF Inj 20 MG/2 ML Vial IV.PUSH SCH ×2 (09:04→21:15)
[2018-06-04] MEDS: Chlorhexidine 0.12% Oral Kit 15 ML UDC OROPHARYNG SCH ×2 (09:05→21:18)
[2018-06-04] MEDS: Senna/Docusate Sodium 8.6/50 MG Tablet PO SCH ×2 (09:05→21:15)
--- NOTE | 2018-06-04 15:28 | P.PN ---
Subjective Interval history: Nursing reports that the patient actually was trying to exit the building. He was very disoriented, was walking around with his gown exposed from the back. When asked the patient was going on, he cannot answer the question. Although he is awake. Physical Exam Vital signs: Vital Signs 06/03/18 16:00 06/03/18 19:09 06/03/18 20:00 Temperature 98.3 F 97.7 F Pulse Rate 102 H 107 H Respiratory Rate 20 18 Blood Pressure 163/110 H 134/96 H Pulse Oximetry 92 L 92 L 95 06/03/18 23:35 06/04/18 00:00 06/04/18 02:00 Temperature 99 F Pulse Rate 91 H 94 H 70 Respiratory Rate 19 18 Blood Pressure 168/94 H Pulse Oximetry 96 94 L 06/04/18 03:51 06/04/18 03:54 06/04/18 04:00 Temperature 98.1 F Pulse Rate 83 78 88 Respiratory Rate 17 18 18 Blood Pressure 166/94 H Pulse Oximetry 97 97 06/04/18 06:00 06/04/18 08:00 06/04/18 09:00 Temperature 97.4 F L Pulse Rate 80 77 79 Respiratory Rate 16 Blood Pressure 152/105 H Pulse Oximetry 95 06/04/18 10:00 06/04/18 12:00 06/04/18 14:00 Temperature 97.3 F L Pulse Rate 72 83 83 Respiratory Rate 16 Blood Pressure 138/88 Pulse Oximetry 93 L Intake & Output 06/03/18 06/04/18 06/04/18 18:59 06:59 18:59 Intake Total 1959 120 / 120 1000 / 1000 Output Total Balance 1958 120 / 120 1000 / 1000 Weight 79.1 kg Intake: IV 1000 / 1000 1000 / 1000 NS Inj 1,000 ML @ 84 mls/hr IV. 1000 / 1000 1000 / 1000 CONT .[id number] [facility] Rx#:[id number] Oral 960 / 960 120 / 120 Output: Urine Other: # Voids 1 # Incontinent Voids 2 Date of Last Bowel Movement 06/02/18 06/03/18 # Bowel Movements 1 # Incontinent Bowel Movements 1 Narrative: Tachycardic rate, regular rhythm Unlabored breathing, clear lungs bilaterally Lying in bed, sleeping, aroused easily, confused - Urinary Catheter Management Indwelling Urethral Catheter Cath placed during this visit: yes, but has since been removed by the nurse Reason for continuing: Decision to DC catheter Insertion date: 05/31/18 Insertion time: 23:00 Removal date: 06/02/18 Removal time: 08:30 Results - Labs CBC & Chem 7: 06/03/18 07:45 06/03/18 07:45 Laboratory Results - last 24 hr 06/03/18 06/04/18 06/04/18 18:13 01:24 05:31 POC Glucose 109 97 88 06/04/18 12:21 POC Glucose 98 Assessment and Plan - Plan 52-year-old white male who was admitted with acute encephalopathy suspected to be secondary to alcohol intoxication, was intubated, sent to the ICU. Has been extubated with no complications. Acute encephalopathy likely secondary to tramadol/EtOH Experiencing withdrawal, CIWA score is 9 again,, monitor overnight Sinus tachycardia Secondary to withdrawal Acute respiratory failure secondary to AMS Small left pleural effusion. Cardiomegaly -resolved Elevated AST Suspected to be secondary to alcohol intoxication, improving Possible suicidal behavior psychiatry input appreciated, ruled out -DVT -SCD/ subcutaneous Heparin
[2018-06-04] MEDS: Sod Chloride 0.9% Inj 1,000 ML IV.CONT SCH ×2 (17:58→21:19)
[2018-06-04] MEDS: LORazepam 1 MG Tablet PO PRN (21:15)
[2018-06-05] MEDS: Insulin NovoLOG Aspart Correctional Sugar Inj SQ SCH ×3 (01:27→11:52)
[2018-06-05] MEDS: Oral Hygiene Kit OROPHARYNG SCH ×3 (01:28→11:51)
[2018-06-05] MEDS: LORazepam 1 MG Tablet PO PRN ×3 (01:30→11:52)
[2018-06-05] MEDS: Chlorhexidine Gluconate 2% 1 Pack (2 Cloths) TOPICAL SCH (05:52)
[2018-06-05] MEDS: Heparin - SQ 10,000 UNITS/ML Vial SQ SCH ×2 (05:52→14:02)
[2018-06-05] MEDS: Chlorhexidine 0.12% Oral Kit 15 ML UDC OROPHARYNG SCH (08:13)
[2018-06-05] MEDS: Hypromellose 0.3% Opth Gel 10 GM Bottle EACH EYE SCH (08:14)
[2018-06-05] MEDS: Famotidine PF Inj 20 MG/2 ML Vial IV.PUSH SCH (08:14)
[2018-06-05] MEDS: Senna/Docusate Sodium 8.6/50 MG Tablet PO SCH (08:15)
[2018-06-05 09:11] VITALS: RESP 17
[2018-06-05] MEDS: Sod Chloride 0.9% Inj 1,000 ML IV.CONT SCH (11:51)
[2018-06-05 12:26] VITALS: BP 150/98; TEMP 97.6; O2SAT 93
--- NOTE | 2018-06-05 15:16 | P.PN ---
Subjective Interval history: Follow-up toxic encephalopathy June 05, 2018-patient seen and examined, alert and oriented 3, was able to ambulate on his own to go to the bathroom. Tolerated p.o. without any competition nausea and vomiting. Currently afebrile. Physical Exam Vital signs: Vital Signs 06/04/18 16:00 06/04/18 18:00 06/04/18 19:50 Temperature 98.5 F Pulse Rate 102 H 105 H Respiratory Rate 16 Blood Pressure 139/90 Pulse Oximetry 90 L 95 06/04/18 20:00 06/04/18 23:55 06/05/18 00:00 Temperature 97.6 F 97.4 F L Pulse Rate 105 H 90 102 H Respiratory Rate 22 18 18 Blood Pressure 141/92 H 138/86 Pulse Oximetry 94 L 92 L 06/05/18 02:45 06/05/18 04:00 06/05/18 08:00 Temperature 97.4 F L 97.7 F Pulse Rate 82 76 77 Respiratory Rate 18 17 Blood Pressure 153/97 H 143/94 H Pulse Oximetry 96 95 06/05/18 09:00 06/05/18 12:00 Temperature 97.6 F Pulse Rate 74 73 Respiratory Rate 17 Blood Pressure 150/98 H Pulse Oximetry 93 L Intake & Output 06/04/18 06/05/18 06/05/18 18:59 06:59 18:59 Intake Total 1240 / 1240 1700 / 1700 300 / 300 Balance 1240 / 1240 1700 / 1700 300 / 300 Weight 78.4 kg Intake: IV 1000 / 1000 1700 / 1700 300 / 300 NS Inj 1,000 ML @ 84 mls/hr IV. 1000 / 1000 1700 / 1700 300 / 300 CONT .[id number] [facility] Rx#:[id number] Oral 240 / 240 Other: Date of Last Bowel Movement 06/03/18 06/04/18 Narrative: GENERAL: NAD SKIN: Warm and dry. HEAD: Normocephalic. EYES: No scleral icterus. No injection or drainage. NECK: Supple, trachea midline. No JVD or lymphadenopathy. CARDIOVASCULAR: Regular rate and rhythm without murmurs, gallops, or rubs. RESPIRATORY: Breath sounds equal bilaterally. No accessory muscle use. GASTROINTESTINAL: Abdomen soft, non-tender, nondistended. MUSCULOSKELETAL: No cyanosis, or edema. BACK: Nontender without obvious deformity. No CVA tenderness. - Urinary Catheter Management Indwelling Urethral Catheter Cath placed during this visit: yes, but has since been removed by the nurse Reason for continuing: Decision to DC catheter Insertion date: 05/31/18 Insertion time: 23:00 Removal date: 06/02/18 Removal time: 08:30 Results - Labs CBC & Chem 7: 06/03/18 07:45 06/03/18 07:45 Laboratory Results - last 24 hr 06/04/18 06/05/18 06/05/18 18:03 00:26 05:50 POC Glucose 137 H 122 H 123 H 06/05/18 11:37 POC Glucose 112 H - Procedures none Assessment and Plan - Assessment (1) Toxic encephalopathy Code(s): G92 - Toxic encephalopathy Status: Acute (2) Overdose Code(s): T50.901A - Poisoning by unspecified drugs, medicaments and biological substances, accidental (unintentional), initial encounter Status: Acute (3) Alcohol-induced mood disorder Code(s): F10.94 - Alcohol use, unspecified with alcohol-induced mood disorder Status: Acute - Plan 52-year-old man with Acute encephalopathy likely secondary to tramadol/EtOH Resolved Sinus tachycardia Resolved Acute respiratory failure secondary to AMS Small left pleural effusion. Cardiomegaly -resolved Elevated AST Suspected to be secondary to alcohol intoxication, improving Possible suicidal behavior psychiatry input appreciated, ruled out -DVT -SCD/ subcutaneous Heparin
--- NOTE | 2018-06-05 15:17 | P.DS ---
Date of admission: 05/31/18 23:58 Primary care physician: UNKNOWN Anticipated date of discharge: 06/05/18 Brief History from admission: This is a 52-year-old male. Date of admission 05/31/2018 past medical history is unknown. Patient has been recently [facility] for approximately 1 week according to 2 friends per records. Patient was found by his 2 friends sitting in a beachchair with steep and water after allegedly taking tramadol and drinking alcohol. He is generally unresponsive GCS of 3. It slightly improved but went back to baseline at 3 upon admission. Patient is intubated receiving 20 mg etomidate in the 100 mg succinylcholine. Baseline laboratories revealed an EtOH level of 127. EKG revealed sinus tachycardia 107. Normal OH, QRS and QT intervals. Patient lactic acidosis of 3.5. Carboxy hemoglobin of 5.5. Chest x-ray reveals ET tube tenseness of the jacques which is been advanced. Small left pleural effusion. Since the friends are no longer available. Unable to further details of HPI, ROS, PMH, PSH, social history, or family history. DS: Diagnosis - Discharge Diagnosis (1) Toxic encephalopathy Status: Acute (2) Overdose Status: Acute (3) Alcohol-induced mood disorder Status: Acute DS: Summary Hospital Course: While in hospital, patient was treated for Acute encephalopathy likely secondary to tramadol/EtOH Resolved Sinus tachycardia Resolved Acute respiratory failure secondary to AMS Small left pleural effusion. Cardiomegaly -resolved Elevated AST Suspected to be secondary to alcohol intoxication, improving Possible suicidal behavior psychiatry input appreciated, ruled out -DVT -SCD/ subcutaneous Heparin - Time Spent with Patient Total time spent providing and/or coordinating discharge services: Less than 30 minutes Exam Vital signs: Vital Signs 06/04/18 16:00 06/04/18 18:00 06/04/18 19:50 Temperature 98.5 F Pulse Rate 102 H 105 H Respiratory Rate 16 Blood Pressure 139/90 Pulse Oximetry 90 L 95 06/04/18 20:00 06/04/18 23:55 06/05/18 00:00 Temperature 97.6 F 97.4 F L Pulse Rate 105 H 90 102 H Respiratory Rate 22 18 18 Blood Pressure 141/92 H 138/86 Pulse Oximetry 94 L 92 L 06/05/18 02:45 06/05/18 04:00 06/05/18 08:00 Temperature 97.4 F L 97.7 F Pulse Rate 82 76 77 Respiratory Rate 18 17 Blood Pressure 153/97 H 143/94 H Pulse Oximetry 96 95 06/05/18 09:00 06/05/18 12:00 Temperature 97.6 F Pulse Rate 74 73 Respiratory Rate 17 Blood Pressure 150/98 H Pulse Oximetry 93 L Intake & Output 06/04/18 06/05/18 06/05/18 18:59 06:59 18:59 Intake Total 1240 / 1240 1700 / 1700 300 / 300 Balance 1240 / 1240 1700 / 1700 300 / 300 Weight 78.4 kg Intake: IV 1000 / 1000 1700 / 1700 300 / 300 NS Inj 1,000 ML @ 84 mls/hr IV. 1000 / 1000 1700 / 1700 300 / 300 CONT .[id number] ARINA Rx#:[id number] Oral 240 / 240 Other: Date of Last Bowel Movement 06/03/18 06/04/18 Narrative: GENERAL: NAD SKIN: Warm and dry. HEAD: Normocephalic. EYES: No scleral icterus. No injection or drainage. NECK: Supple, trachea midline. No JVD or lymphadenopathy. CARDIOVASCULAR: Regular rate and rhythm without murmurs, gallops, or rubs. RESPIRATORY: Breath sounds equal bilaterally. No accessory muscle use. GASTROINTESTINAL: Abdomen soft, non-tender, nondistended. MUSCULOSKELETAL: No cyanosis, or edema. BACK: Nontender without obvious deformity. No CVA tenderness. Results Procedures completed during hospitalization: none Labs on day of discharge: Labs from last 24 hours 06/05/18 06/05/18 06/05/18 11:37 05:50 00:26 POC Glucose 112 H 123 H 122 H 06/04/18 18:03 POC Glucose 137 H - Impressions ITS Impressions Chest X-Ray 05/31/18 21:00 CONCLUSION: 1. Trace bibasilar atelectasis. 2. Probable small left pleural effusion. 3. Endotracheal tube tip is at the thoracic inlet. 4. Nasogastric tube tip in the stomach. Head CT 06/01/18 00:01 CONCLUSION: No acute intracranial abnormality is identified. Discharge Plan - Discharge Disposition Patient Disposition: Discharge Home - Discharge Condition Condition: Good - Discharge Order Discharge Orders: Discharge Order (Routine); Ordered 06/05/18 Ordered By: Yahir Turpin - Physicians Team Primary Care Provider: UNKNOWN, Attending Provider: Yahir Turpin Other Providers: Evens Cruz MD
[2018-06-05 18:13] VITALS: PULSE 95
== END 2018-06-05 17:22 | disposition home or self-care (01) ==
LOC: NEPE 20:47 → NEDA 23:58 → HIMC 06-01 01:05 → N04 06-03 00:08
PROVIDERS: ADMIT Hospitalist; ATTEND Hospitalist